=== PATIENT | male | born 1945 | race Caucasian/White ===

== ENCOUNTER 2016-11-06 10:35 | Outpatient (CLI) | payer MEDICARE, OTHER | END 2016-11-06 10:36 | disposition home or self-care (01) | DX: N40.1 Benign prostatic hyperplasia with lower urinary tract symptoms (principal); E11.9 Type 2 diabetes mellitus without complications; I10 Essential (primary) hypertension ==

== ENCOUNTER 2017-03-23 07:42 | Outpatient (CLI) | payer MEDICARE, OTHER ==
[2017-03-23 19:25] LABS: ALBUMIN/GLOBULIN RATIO 1.2 (1.0-2.2); BILIRUBIN,TOTAL 0.5 mg/dL (0.2-1.0); BUN - BLOOD UREA NITROGEN 20 mg/dL (6-20); CALCIUM 9.4 mg/dL (8.5-10.3); CARBON DIOXIDE - CO2 24 mmol/L (21-32); CHLORIDE 103 mmol/L (101-111); CHOL/HDL RATIO 2.4 (<5.0); CHOLESTEROL 106 mg/dL; GFR - MDRD 74 (>89); GLUCOSE 106 mg/dL (70-100); HDL CHOLESTEROL 45 mg/dL; LDL/HDL RATIO 0.9 (<3.6); POTASSIUM 4.3 mmol/L (3.5-5.0); SODIUM 136 mmol/L (135-145); TOTAL PROTEIN 7.3 g/dL (6.7-8.2); TRIGLYCERIDES 100 mg/dL; VLDL CHOLESTEROL 20 mg/dL
[2017-03-23 19:40] LABS: HEMOGLOBIN A1C 1.15 g/dL
== END 2017-03-23 07:43 | disposition home or self-care (01) ==
LOC: LAB.WCP 07:42
PROVIDERS: ATTEND Family Medicine
DX: I10 Essential (primary) hypertension (principal)
CPT/HCPCS: 36415; 80053; 80061; 82043; 83036

== ENCOUNTER 2017-06-25 08:00 | Outpatient (CLI) | payer MEDICARE, OTHER ==
[2017-06-25 14:20] LABS: ALBUMIN/GLOBULIN RATIO 1.3 (1.0-2.2); BILIRUBIN,TOTAL 0.5 mg/dL (0.2-1.0); CALCIUM 9.4 mg/dL (8.5-10.3); CREATININE 0.9 mg/dL (0.6-1.2); POTASSIUM 4.1 mmol/L (3.5-5.0); TOTAL PROTEIN 7.5 g/dL (6.7-8.2)
[2017-06-25 15:36] LABS: HEMOGLOBIN A1C 1.08 g/dL
== END 2017-06-25 08:01 | disposition home or self-care (01) ==
LOC: LAB.WCP 08:00
PROVIDERS: ATTEND Family Medicine
DX: E78.5 Hyperlipidemia, unspecified (principal); E11.49 Type 2 diabetes mellitus with other diabetic neurological complication; I10 Essential (primary) hypertension
CPT/HCPCS: 36415; 80053; 83036

== ENCOUNTER 2017-09-16 14:35 | Outpatient (CLI) | payer MEDICARE, OTHER ==
[2017-09-16 19:35] LABS: ALBUMIN/GLOBULIN RATIO 1.2 (1.0-2.2); BILIRUBIN,TOTAL 0.7 mg/dL (0.2-1.0); CALCIUM 9.8 mg/dL (8.5-10.3); CREATININE 0.9 mg/dL (0.6-1.2); HEMOGLOBIN A1C 1.13 g/dL; POTASSIUM 4.3 mmol/L (3.5-5.0); TOTAL PROTEIN 7.6 g/dL (6.7-8.2)
== END 2017-09-16 14:36 ==
LOC: LAB.WCP 14:35
PROVIDERS: ATTEND Family Medicine
DX: E11.49 Type 2 diabetes mellitus with other diabetic neurological complication (principal)
CPT/HCPCS: 36415; 80053; 83036

== ENCOUNTER 2017-12-11 07:10 | Day surgery (SDC) | payer MEDICARE, OTHER ==
[2017-12-11] MEDS ORDERED: LACTATED RINGERS 1,000 ML IV ONE (07:33)
[2017-12-11] MEDS ORDERED: GLUCAGON 1 MG/ML VIAL IM ONE (07:45)
[2017-12-11] MEDS ORDERED: MIDAZOLAM 2 MG/2 ML VIAL IVP ONE (07:45)
[2017-12-11] MEDS ORDERED: PROPOFOL 200 MG/20 ML VIAL IVP ONE (07:45)
[2017-12-11] MEDS ORDERED: SODIUM CHLORIDE 0.9% 10 ML VIAL IV ONE (07:45)
[2017-12-11] MEDS ORDERED: GLYCOPYRROLATE 1 MG/5 ML VIAL IVP ONE (07:45)
[2017-12-11] MEDS ORDERED: KETAMINE 500 MG/10 ML VIAL IVP ONE (07:45)
[2017-12-11 10:24] VITALS: BP 132/82
== END 2017-12-11 07:11 | disposition home or self-care (01) ==
LOC: SDS 07:10
PROVIDERS: ATTEND Surgery
PROC: 0DBN8ZX Excision of Sigmoid Colon, Via Natural or Artificial Opening Endoscopic, Diagnostic (ICD-10-PCS; 2017-12-11)
PROC: 0DBM8ZX Excision of Descending Colon, Via Natural or Artificial Opening Endoscopic, Diagnostic (ICD-10-PCS; 2017-12-11)
PROC: 0DBK8ZX Excision of Ascending Colon, Via Natural or Artificial Opening Endoscopic, Diagnostic (ICD-10-PCS; principal; 2017-12-11 08:15)
DX: Z12.11 Encounter for screening for malignant neoplasm of colon (principal); K57.30 Diverticulosis of large intestine without perforation or abscess without bleeding; D12.2 Benign neoplasm of ascending colon; D12.5 Benign neoplasm of sigmoid colon; K63.5 Polyp of colon; I10 Essential (primary) hypertension; E11.42 Type 2 diabetes mellitus with diabetic polyneuropathy; G47.33 Obstructive sleep apnea (adult) (pediatric); Z87.891 Personal history of nicotine dependence; Z79.82 Long term (current) use of aspirin; Z79.84 Long term (current) use of oral hypoglycemic drugs; Z79.4 Long term (current) use of insulin
CPT/HCPCS: 45384; J7120

== ENCOUNTER 2017-12-17 08:00 | Outpatient (CLI) | payer MEDICARE, OTHER ==
[2017-12-17 19:15] LABS: ALBUMIN/GLOBULIN RATIO 1.2 (1.0-2.2); ALKALINE PHOSPHATASE 71 IU/L (42-121); ALT ALANINE AMINOTRANSFERASE 22 IU/L (10-60); AST ASPARTATE AMINOTRANSFERASE 32 IU/L (10-42); BILIRUBIN,TOTAL 0.8 mg/dL (0.2-1.0); BUN - BLOOD UREA NITROGEN 24 mg/dL (6-20); CALCIUM 9.6 mg/dL (8.5-10.3); CARBON DIOXIDE - CO2 21 mmol/L (21-32); CHLORIDE 104 mmol/L (101-111); CREATININE 1.1 mg/dL (0.6-1.2); GFR - MDRD 66 (>89); GLUCOSE 188 mg/dL (70-100); SODIUM 136 mmol/L (135-145); TOTAL PROTEIN 7.4 g/dL (6.7-8.2)
[2017-12-17 19:25] LABS: HB2 TOTAL 15.6 g/dL; HEMOGLOBIN A1C 0.98 g/dL; HEMOGLOBIN A1C % 7.9 % (4.6-6.2)
== END 2017-12-17 08:01 | disposition home or self-care (01) ==
LOC: LAB.WCP 08:00
PROVIDERS: ATTEND Family Medicine
DX: E11.49 Type 2 diabetes mellitus with other diabetic neurological complication (principal); I10 Essential (primary) hypertension
CPT/HCPCS: 36415; 80053; 82043; 83036; 84443

== ENCOUNTER 2017-12-18 06:00 | Outpatient (CLI) | payer MEDICARE, OTHER | END 2017-12-18 06:01 | disposition home or self-care (01) | LOC: LAB.WCP 06:00 | PROVIDERS: ATTEND Family Medicine | DX: E11.49 Type 2 diabetes mellitus with other diabetic neurological complication (principal); I10 Essential (primary) hypertension | CPT/HCPCS: 82043 ==

== ENCOUNTER 2018-03-18 08:00 | Outpatient (CLI) | payer MEDICARE, OTHER ==
[2018-03-18 19:21] LABS: ALBUMIN 3.8 g/dL (3.2-5.5); ALBUMIN/GLOBULIN RATIO 1.1 (1.0-2.2); ALKALINE PHOSPHATASE 73 IU/L (42-121); ALT ALANINE AMINOTRANSFERASE 22 IU/L (10-60); AST ASPARTATE AMINOTRANSFERASE 25 IU/L (10-42); BUN - BLOOD UREA NITROGEN 20 mg/dL (6-20); CALCIUM 9.2 mg/dL (8.5-10.3); CARBON DIOXIDE - CO2 24 mmol/L (21-32); CHLORIDE 104 mmol/L (101-111); CHOL/HDL RATIO 2.7 (<5.0); CHOLESTEROL 134 mg/dL; CREATININE 0.9 mg/dL (0.6-1.2); GFR - MDRD 83 (>89); GLUCOSE 119 mg/dL (70-100); HDL CHOLESTEROL 49 mg/dL; LDL CHOLESTEROL,CALCULATED 69 mg/dL; LDL/HDL RATIO 1.4 (<3.6); SODIUM 135 mmol/L (135-145); TOTAL PROTEIN 7.3 g/dL (6.7-8.2); VLDL CHOLESTEROL 16 mg/dL
[2018-03-18 19:22] LABS: HB2 TOTAL 15.7 g/dL; HEMOGLOBIN A1C 1.06 g/dL; HEMOGLOBIN A1C % 8.3 % (4.6-6.2)
== END 2018-03-18 08:01 | disposition home or self-care (01) ==
LOC: LAB.WCP 08:00
PROVIDERS: ATTEND Family Medicine
DX: E78.5 Hyperlipidemia, unspecified (principal); E11.9 Type 2 diabetes mellitus without complications
CPT/HCPCS: 36415; 80053; 80061; 82043; 83036; 83721; 84443

== ENCOUNTER 2018-06-16 15:50 | Outpatient (CLI) | payer MEDICARE, OTHER ==
[2018-06-16 19:02] LABS: ALBUMIN/GLOBULIN RATIO 1.1 (1.0-2.2); BILIRUBIN,TOTAL 0.8 mg/dL (0.2-1.0); CALCIUM 9.3 mg/dL (8.5-10.3); TOTAL PROTEIN 7.6 g/dL (6.7-8.2)
[2018-06-16 19:06] LABS: HB2 TOTAL 15.2 g/dL; HEMOGLOBIN A1C 0.97 g/dL
== END 2018-06-16 15:51 | disposition home or self-care (01) ==
LOC: LAB.WCP 15:50
PROVIDERS: ATTEND Family Medicine
DX: E11.49 Type 2 diabetes mellitus with other diabetic neurological complication (principal)
CPT/HCPCS: 36415; 80053; 83036

== ENCOUNTER 2018-06-17 13:30 | Outpatient (CLI) | payer MEDICARE, OTHER | END 2018-06-17 13:31 | disposition home or self-care (01) | LOC: LAB.WCP 13:30 | PROVIDERS: ATTEND Family Medicine | DX: E11.49 Type 2 diabetes mellitus with other diabetic neurological complication (principal) | CPT/HCPCS: 82043 ==

== ENCOUNTER → 2018-09-07 | Outpatient (CLI) | payer MEDICARE, OTHER ==
[2018-09-07 14:51] LABS: ALBUMIN 3.9 g/dL (3.2-5.5); ALBUMIN/GLOBULIN RATIO 1.3 (1.0-2.2); BILIRUBIN,TOTAL 0.7 mg/dL (0.2-1.0); CALCIUM 9.5 mg/dL (8.5-10.3); TOTAL PROTEIN 6.9 g/dL (6.7-8.2)
[2018-09-07 18:38] LABS: BASOPHILS % (AUTO) 0.5 %; EOSINOPHILS # (AUTO) 0.1 10^3/uL (0.0-0.7); EOSINOPHILS % (AUTO) 2.3 %; LYMPHOCYTES # (AUTO) 1.6 10^3/uL (1.5-3.5); LYMPHOCYTES % (AUTO) 30.4 %; MEAN CORPUSCULAR HEMOGLOBIN 30.5 pg (27.0-31.0); MEAN CORPUSCULAR HGB CONC 32.9 g/dL (32.0-36.0); MEAN CORPUSCULAR VOLUME 92.7 fL (80.0-94.0); MEAN PLATELET VOLUME 11.6 fL (7.4-11.4); MONOCYTES # (AUTO) 0.4 10^3/uL (0.0-1.0); NEUTROPHILS # (AUTO) 3.1 10^3/uL (1.5-6.6); NEUTROPHILS % (AUTO) 59.8 %; PLT - PLATELET COUNT 146 10^3/uL (130-450); RED BLOOD COUNT 4.59 10^6/uL (4.70-6.10); RED CELL DISTRIBUTION WIDTH 13.2 % (12.0-15.0); WHITE BLOOD COUNT 5.2 x10^3/uL (4.8-10.8)
[2018-09-07 19:04] LABS: HB2 TOTAL 14.8 g/dL; HEMOGLOBIN A1C 1.13 g/dL; HEMOGLOBIN A1C % 9.1 % (4.6-6.2)
== END ==
LOC: LAB.WCP 10:47
PROVIDERS: ATTEND Family Medicine
DX: E11.49 Type 2 diabetes mellitus with other diabetic neurological complication (principal); I10 Essential (primary) hypertension; G47.30 Sleep apnea, unspecified
CPT/HCPCS: 36415; 80053; 83036; 85025

== ENCOUNTER 2019-01-27 12:02 | Outpatient (CLI) | payer MEDICARE, OTHER ==
[2019-01-27 19:20] LABS: BASOPHILS % (AUTO) 0.3 %; EOSINOPHILS # (AUTO) 0.2 10^3/uL (0.0-0.7); EOSINOPHILS % (AUTO) 3.2 %; HGB - HEMOGLOBIN 13.8 g/dL (14.0-18.0); LYMPHOCYTES # (AUTO) 1.9 10^3/uL (1.5-3.5); LYMPHOCYTES % (AUTO) 32.4 %; MEAN CORPUSCULAR HEMOGLOBIN 29.7 pg (27.0-31.0); MEAN CORPUSCULAR HGB CONC 32.7 g/dL (32.0-36.0); MEAN CORPUSCULAR VOLUME 90.8 fL (80.0-94.0); MEAN PLATELET VOLUME 10.5 fL (7.4-11.4); MONOCYTES # (AUTO) 0.3 10^3/uL (0.0-1.0); MONOCYTES % (AUTO) 5.2 %; NEUTROPHILS # (AUTO) 3.4 10^3/uL (1.5-6.6); NEUTROPHILS % (AUTO) 58.9 %; PLT - PLATELET COUNT 155 10^3/uL (130-450); RED BLOOD COUNT 4.63 10^6/uL (4.70-6.10); RED CELL DISTRIBUTION WIDTH 13.7 % (12.0-15.0); WHITE BLOOD COUNT 5.7 x10^3/uL (4.8-10.8)
[2019-01-27 21:05] LABS: ALBUMIN 3.9 g/dL (3.2-5.5); ALBUMIN/GLOBULIN RATIO 1.2 (1.0-2.2); ALKALINE PHOSPHATASE 82 IU/L (42-121); ALT ALANINE AMINOTRANSFERASE 21 IU/L (10-60); AST ASPARTATE AMINOTRANSFERASE 25 IU/L (10-42); BILIRUBIN,TOTAL 0.7 mg/dL (0.2-1.0); BUN - BLOOD UREA NITROGEN 19 mg/dL (6-20); CALCIUM 9.5 mg/dL (8.5-10.3); CARBON DIOXIDE - CO2 24 mmol/L (21-32); CHLORIDE 106 mmol/L (101-111); CHOL/HDL RATIO 2.7 (<5.0); CHOLESTEROL 138 mg/dL; CREATININE 0.8 mg/dL (0.6-1.2); GFR - MDRD 95 (>89); GLUCOSE 74 mg/dL (70-100); HDL CHOLESTEROL 51 mg/dL; LDL CHOLESTEROL,CALCULATED 70 mg/dL; LDL/HDL RATIO 1.4 (<3.6); SODIUM 139 mmol/L (135-145); TOTAL PROTEIN 7.1 g/dL (6.7-8.2); VLDL CHOLESTEROL 17 mg/dL
[2019-01-27 21:26] LABS: HB2 TOTAL 14.7 g/dL; HEMOGLOBIN A1C 1.09 g/dL; HEMOGLOBIN A1C % 8.9 % (4.6-6.2)
== END 2019-01-27 12:03 | disposition home or self-care (01) ==
LOC: LAB.WCP 12:02
PROVIDERS: ATTEND Family Medicine
DX: E11.9 Type 2 diabetes mellitus without complications (principal); I10 Essential (primary) hypertension; Z79.899 Other long term (current) drug therapy; E78.5 Hyperlipidemia, unspecified
CPT/HCPCS: 36415; 80053; 80061; 82043; 82570; 83036; 83721; 85025

== ENCOUNTER 2019-01-31 08:00 | Outpatient (CLI) | payer MEDICARE, OTHER ==
[2019-01-31 20:10] LABS: CREATININE,URINE 109.3 mg/dL; MICROALBUM/CREATININE RATIO,UR 26.5 ug/mg (<30.0); MICROALBUMIN,URINE 2.9 mg/dL (0-300.0)
== END 2019-01-31 23:59 | disposition home or self-care (01) ==
LOC: LAB.WCP 08:00
PROVIDERS: ATTEND Family Medicine
DX: E11.9 Type 2 diabetes mellitus without complications (principal)
CPT/HCPCS: 82043; 82570

== ENCOUNTER 2019-03-17 08:00 | Outpatient (CLI) | payer MEDICARE, OTHER ==
[2019-03-17 19:02] LABS: CALCIUM 9.3 mg/dL (8.5-10.3)
== END 2019-03-17 23:59 | disposition home or self-care (01) ==
LOC: LAB.WCP 08:00
PROVIDERS: ATTEND Family Medicine
DX: R06.00 Dyspnea, unspecified (principal)
CPT/HCPCS: 36415; 80048; 83880

== ENCOUNTER 2019-03-28 09:25 | Outpatient (CLI) | payer MEDICARE, OTHER ==
[~2019-03-28 09:25] MED LIST: ALBUTEROL NEB 2.5 MG/3 ML INH ONE
--- NOTE | 2019-03-28 14:20 | XRAY Report ---
Reason: NEUROGENIC CLAUDICATION,ARTHRITIS,LUMBAR SPINE Procedure Date: 03/28/2019 Accession Number: [id number] / [id number] Procedure: XR - Lumbar Spine 2 View CPT Code: FULL RESULT: EXAM: LUMBOSACRAL SPINE RADIOGRAPHY EXAM DATE: 03/28/2019 11:12 AM. CLINICAL HISTORY: NEUROGENIC CLAUDICATION, ARTHRITIS, LUMBAR SPINE. COMPARISONS: None. TECHNIQUE: 3 views. FINDINGS: Alignment: Normal. No spondylolisthesis or scoliosis. Bones: Five [id number] lumbar vertebral bodies are present. No fractures or bone lesions. Disks: Mild disk height narrowing at L1-L2 without subluxation. Otherwise no significant disk height narrowing. Facets: Advanced multilevel facet arthropathy. Sacroiliac Joints: Unremarkable. Soft Tissues: Normal. The visualized bowel gas pattern is normal. IMPRESSION: 1. No compression fracture or malalignment. 2. Moderately severe multilevel facet arthropathy. 3. Mild degenerative disease at L1-L2. No other significant degenerative disk disease. RADIA
== END 2019-03-28 09:26 | disposition home or self-care (01) ==
LOC: RT 09:25 → DI 09:26
PROVIDERS: ATTEND Family Medicine
DX: M51.36 Other intervertebral disc degeneration, lumbar region (principal); M47.816 Spondylosis without myelopathy or radiculopathy, lumbar region; R05 Cough; Z87.891 Personal history of nicotine dependence
CPT/HCPCS: 72100; 94060; 94729

== ENCOUNTER 2019-05-19 09:56 | Outpatient (CLI) | payer MEDICARE, OTHER ==
--- NOTE | 2019-05-20 16:11 | CT Report ---
Reason: DYSPNEA ON EXERTION, ABNORMAL PFT Procedure Date: 05/19/2019 Accession Number: [id number] / [id number] Procedure: CT - CHEST WO CPT Code: FULL RESULT: EXAM: CT CHEST EXAM DATE: 05/19/2019 10:10 AM. CLINICAL HISTORY: DYSPNEA ON EXERTION, ABNORMAL PFT. COMPARISONS: None. TECHNIQUE: Routine helical CT imaging was performed through the chest. IV contrast: None. Reconstructions: Coronal and sagittal. In accordance with CT protocol optimization, one or more of the following dose reduction techniques were utilized for this exam: automated exposure control, adjustment of mA and/or KV based on patient size, or use of iterative reconstructive technique. FINDINGS: Lungs/Pleura: Localized accentuation of lung markings with possible scarring and small area of bronchiectasis in the medial posterior right base. Otherwise clear. No consolidation, effusion, or pneumothorax. Mediastinum: Overall heart size upper limit of normal. Dilated main pulmonary artery measuring 3.6 cm, indicating pulmonary artery hypertension. Mild dilation of ascending thoracic aorta measuring 4.5 cm. No pericardial effusion. At least one vessel coronary artery calcification. No lymphadenopathy. Bones: Degenerative changes. Visualized Abdomen: Atrophic pancreas. Other: None. IMPRESSION: 1. Localized scarring and bronchiectasis in the medial right posterior base; atypical appearing acute infiltrate is also a consideration. 2. Pulmonary artery hypertension. Mild dilation of ascending thoracic aorta. 3. Coronary artery calcifications, atrophic pancreas, and other chronic or incidental findings. RADIA
== END 2019-05-19 09:57 | disposition home or self-care (01) ==
LOC: DI 09:56
PROVIDERS: ATTEND Family Medicine
DX: J47.9 Bronchiectasis, uncomplicated (principal); I27.0 Primary pulmonary hypertension; I77.810 Thoracic aortic ectasia
CPT/HCPCS: 71250

== ENCOUNTER 2019-06-15 08:00 | Outpatient (CLI) | payer MEDICARE, OTHER ==
[2019-06-15 19:16] LABS: ALBUMIN 3.6 g/dL (3.2-5.5); ALBUMIN/GLOBULIN RATIO 1.1 (1.0-2.2); BILIRUBIN,TOTAL 0.5 mg/dL (0.2-1.0); CALCIUM 9.6 mg/dL (8.5-10.3); HB2 TOTAL 14.2 g/dL; HEMOGLOBIN A1C 0.88 g/dL; HEMOGLOBIN A1C % 7.8 % (4.6-6.2)
== END 2019-06-15 23:59 | disposition home or self-care (01) ==
LOC: LAB.WCP 08:00
PROVIDERS: ATTEND Family Medicine
DX: R60.0 Localized edema (principal); E11.9 Type 2 diabetes mellitus without complications; I10 Essential (primary) hypertension
CPT/HCPCS: 36415; 80053; 82043; 83036

== ENCOUNTER 2019-07-13 08:58 | Outpatient (CLI) | payer MEDICARE, OTHER | END 2019-07-13 08:59 | disposition home or self-care (01) | LOC: DI 08:58 | PROVIDERS: ATTEND Family Medicine | DX: I10 Essential (primary) hypertension (principal); R06.09 Other forms of dyspnea; R05 Cough; G47.30 Sleep apnea, unspecified; I49.3 Ventricular premature depolarization; I07.1 Rheumatic tricuspid insufficiency | CPT/HCPCS: 93306 ==

== ENCOUNTER 2019-08-09 08:00 | Outpatient (CLI) | payer MEDICARE, OTHER ==
[2019-08-09 19:10] LABS: BASOPHILS % (AUTO) 0.5 %; EOSINOPHILS # (AUTO) 0.1 10^3/uL (0.0-0.7); EOSINOPHILS % (AUTO) 1.7 %; HGB - HEMOGLOBIN 13.8 g/dL (14.0-18.0); LYMPHOCYTES # (AUTO) 1.9 10^3/uL (1.5-3.5); MEAN CORPUSCULAR HEMOGLOBIN 29.4 pg (27.0-31.0); MEAN CORPUSCULAR VOLUME 91.9 fL (80.0-94.0); MEAN PLATELET VOLUME 12.9 fL (7.4-11.4); MONOCYTES # (AUTO) 0.4 10^3/uL (0.0-1.0); NEUTROPHILS # (AUTO) 3.5 10^3/uL (1.5-6.6); NEUTROPHILS % (AUTO) 59.3 %; PLT - PLATELET COUNT 175 10^3/uL (130-450); RED BLOOD COUNT 4.69 10^6/uL (4.70-6.10); RED CELL DISTRIBUTION WIDTH 13.2 % (12.0-15.0); WHITE BLOOD COUNT 5.9 x10^3/uL (4.8-10.8)
[2019-08-09 19:41] LABS: HB2 TOTAL 14.8 g/dL; HEMOGLOBIN A1C 0.92 g/dL; HEMOGLOBIN A1C % 7.8 % (4.6-6.2)
[2019-08-09 19:54] LABS: CHOL/HDL RATIO 2.4 (<5.0); CHOLESTEROL 124 mg/dL; HDL CHOLESTEROL 52 mg/dL; LDL CHOLESTEROL,CALCULATED 61 mg/dL; LDL/HDL RATIO 1.2 (<3.6); VLDL CHOLESTEROL 11 mg/dL
[2019-08-09 20:42] LABS: ALBUMIN 3.9 g/dL (3.2-5.5); ALBUMIN/GLOBULIN RATIO 1.1 (1.0-2.2); BILIRUBIN,TOTAL 0.7 mg/dL (0.2-1.0); CALCIUM 9.5 mg/dL (8.5-10.3); CREATININE 0.9 mg/dL (0.6-1.2); TOTAL PROTEIN 7.3 g/dL (6.7-8.2)
== END 2019-08-09 23:59 | disposition home or self-care (01) ==
LOC: LAB.WCP 08:00
PROVIDERS: ATTEND Internal Medicine Cardiovascular Disease
DX: I10 Essential (primary) hypertension (principal); E11.49 Type 2 diabetes mellitus with other diabetic neurological complication
CPT/HCPCS: 36415; 80048; 80053; 80061; 83036; 83721; 85025

== ENCOUNTER 2019-10-24 18:34 | Outpatient (CLI) | payer MEDICARE, OTHER | END 2019-10-24 18:35 | disposition EMS.NT | LOC: EMS 18:34 | PROVIDERS: ATTEND Surgery | DX: Z03.89 Encounter for observation for other suspected diseases and conditions ruled out (principal) ==

== ENCOUNTER 2019-10-27 01:31 | Outpatient (CLI) | payer MEDICARE, OTHER | END 2019-10-27 01:32 | disposition critical access hospital (66) | LOC: EMS 01:31 | PROVIDERS: ATTEND Surgery | DX: M79.89 Other specified soft tissue disorders (principal); M79.662 Pain in left lower leg | CPT/HCPCS: A0425; A0429 ==

== ENCOUNTER 2019-10-27 01:49 | Inpatient (IN) | payer MEDICARE, OTHER ==
[2019-10-27] MEDS ORDERED: SODIUM CHLORIDE 0.9% 1,000 ML IV ONE (02:17)
--- NOTE | 2019-10-27 02:21 | ED Physician Documentation ---
History of Present Illness - Stated complaint Stated Complaint: LEG SWELLING - Chief complaint Chief Complaint: General - History obtained from History obtained from: Patient, EMS - History of Present Illness Timing: How many days ago (4) - Additonal information Additional information: 73-year old diabetic male on insulin has become profoundly weak and has had falls in his home and has some erythema and swelling to the left lower extremity more than usual. The patient indicates that 5 days ago he was able to go to the store and retrieve his food and seem to be doing as well as he usually does. He always walks with a cane. Over the past 4 days he has become progressively weak he has had falls in his home he is bruised his ribs on the right side he has rug ramsey on his knees from crawling around in his house. He has developed a foul taste in his mouth and he is unable to urinate today. He states that he was urinating every 1/2 hour yesterday and today he is not able to urinate. He states that he is recently (Sep) been in to see Dr. Yuki Rick and had a coronary angiogram done and he has been in to see the county superintendent of schools and has been cleared for his lungs as well. He states he had these examinations done in preparation to have surgery for spinal stenosis. Review of Systems Constitutional: reports: Fatigue, Other (weakness). denies: Fever, Chills, Myalgias, Sweats Eyes: denies: Decreased vision Ears: denies: Ear pain Nose: denies: Rhinorrhea / runny nose, Congestion Throat: reports: Other (dry mucuos membranes and perverted taste). denies: Dental pain / toothache Cardiac: denies: Chest pain / pressure, Palpitations Respiratory: denies: Dyspnea, Cough GI: reports: Nausea. denies: Abdominal Pain, Vomiting, Constipation, Diarrhea : reports: Frequency, Unable to Void. denies: Dysuria Skin: reports: Rash, Other (rash to groin and increased redness to left lower e xt.) Musculoskeletal: reports: Neck pain, Extremity pain, Extremity swelling (mostly to the left lower.) PD PAST MEDICAL HISTORY - Past Medical History Cardiovascular: Hypertension Respiratory: Sleep apnea Endocrine/Autoimmune: Type 2 diabetes GI: Colon polyps : None HEENT: Chronic vision loss Psych: None Musculoskeletal: None Derm: None - Past Surgical History General: Colonoscopy Ortho: Arthroscopic surgery HEENT: Cataracts - Present Medications Home Medications: Ambulatory Orders Medication Instructions Recorded Confirmed Aspirin Chewable [[place] 81 mg PO DAILY 03/02/13 12/10/17 Aspirin] Insulin Aspart [NovoLOG] 20 - 60 unit SUBQ BID 03/02/13 12/10/17 Insulin Glargine,Hum.rec.anlog 100 unit SQ BID 03/02/13 12/11/17 [Lantus] Liraglutide [Victoza 2-Yg] 1.8 mg SQ DAILY 03/02/13 12/11/17 Magnesium 200 mg PO DAILY 03/02/13 12/10/17 Metformin HCl [Metformin HCl ER] 850 mg PO TID 03/02/13 12/10/17 Metoprolol Succinate [Toprol Xl] 25 mg PO DAILY 03/02/13 12/11/17 [place]-3 Fatty Acids [Fish Oil] 1,000 mg PO DAILY 03/02/13 12/11/17 Telmisartan [Micardis] 80 mg PO DAILY 03/02/13 12/11/17 Atorvastatin Calcium [Lipitor] 80 mg PO QPM 02/06/15 12/11/17 Cetirizine HCl [Zyrtec] 10 mg PO DAILY 02/06/15 12/11/17 Multivitamin [Multiple Vitamins] 1 each PO DAILY 12/10/17 12/11/17 diphenhydrAMINE [Benadryl] 25 mg PO HS 12/10/17 12/11/17 - Allergies Allergies/Adverse Reactions: Allergies Allergy/AdvReac Type Severity Reaction Status Date / Time hydrochlorothiazide AdvReac Severe pancreatiti Verified 10/27/19 02:06 s adhesive tape AdvReac Itching Verified 10/27/19 02:06 - Social History Smoking Status: Former smoker PD ED PE NORMAL - Vitals Vital signs reviewed: Yes (tachy and hypertensive diastolic ) - General General: Alert and oriented X 3, Well developed/nourished, Other (This is a 6 foot 6 inch 380 pound male who smells of the clinic team flesh and has marked lower extremity edema on the left with erythema extending up to the thigh who is in a pair of underwear with a leather belt around his waist and is having a hard time shifting from the [place] to our gurney. He appears weak but he is interactive and able to give adequate history with patients.) - HEENT HEENT: Atraumatic, PERRL, EOMI, Other (dry mucous membranes ) - Neck Neck: Supple, no meningeal sign, No bony TTP - Cardiac Cardiac: RRR, No murmur - Respiratory Respiratory: No respiratory distress, Other (bibasilar rhonchi) - Abdomen Abdomen: Soft, Non tender, Other (obese protruberant abdomen. There is bruising the the right upper abdomen over the lower ribs on the right. ) - Back Back: No CVA TTP - Derm Derm: Other (There is deep erythema to the intriginous folds inguinally bilaterally and there is light erythema consistent with superinfection to the left upper thigh. The left calf has circumfirential erythema and sewlling consistient with cellulitis with lymphangitic streaking to the thigh. There is post inflamitory hyperpigmentation to the right anterior calf with much less swelling than the right. ) - Extremities Extremities: No deformity, Other (edema to the left lower ext from the toes to the thigh with erythema and mild edema and post inflamitory hyperpigmenation to the right anterior calf. There are rug ramsey to both knees. There is good ROM of the knees without pain and to the ankles without pain. The left calf is tender. ) - Neuro Neuro: Alert and oriented X 3, red hat open stack administrator 2-12 intact, No motor deficit, Normal speech, Other (There is subjective numbness to the left LE. ) Eye Opening: Spontaneous Motor: Obeys Commands Verbal: Oriented GCS Score: 15 - Psych Psych: Normal mood, Normal affect Results - Vitals Vitals: Vital Signs - 24 hr 10/27/19 10/27/19 10/27/19 01:55 02:06 03:02 Temperature 36.9 C Heart Rate 108 H 98 Respiratory 19 17 19 Rate Blood Pressure 127/97 H 142/68 H 127/78 O2 Saturation 97 96 97 10/27/19 04:56 Temperature Heart Rate 95 Respiratory 18 Rate Blood Pressure 144/64 H O2 Saturation 97 Oxygen O2 Source Room air - Labs Labs: Laboratory Tests 10/27/19 10/27/19 10/27/19 02:25 02:25 02:25 WBC 12.7 H RBC 4.31 L Hgb 12.9 L Hct 38.1 L MCV 88.4 MCH 29.9 MCHC 33.9 RDW 13.1 Plt Count 156 MPV 12.0 H Neut # (Auto) 9.4 H Lymph # (Auto) 2.4 [place] # (Auto) 0.8 Eos # (Auto) 0.0 Baso # (Auto) 0.0 Absolute Nucleated RBC 0.00 Nucleated RBC % 0.0 VBG pH VBG pCO2 VBG pO2 VBG HCO3 VBG Total CO2 VBG O2 Saturation VBG Base Excess Sodium 134 L Potassium 3.7 Chloride 102 Carbon Dioxide 22 Anion Gap 10.0 BUN 34 H Creatinine 1.6 H Estimated GFR (MDRD) 43 L Glucose 63 L Lactic Acid 1.7 Calcium 8.8 Total Bilirubin 0.8 AST 305 H ALT 103 H Alkaline Phosphatase 59 Total Creatine Kinase Total Protein 7.2 Albumin 3.4 Globulin 3.8 Albumin/Globulin Ratio 0.9 L Lipase 45 Urine Color Urine Clarity Urine pH Ur Specific [place] Urine Protein Urine Glucose (UA) Urine Ketones Urine Occult Blood Urine Nitrite Urine Bilirubin Urine Urobilinogen Ur Leukocyte Esterase Urine RBC Urine WBC Ur Squamous Epith Cells Amorphous Sediment Urine Bacteria Urine Casts Ur Microscopic Review Urine Culture Comments Serum Ketones NEGATIVE 10/27/19 10/27/19 10/27/19 02:25 02:25 03:30 WBC RBC Hgb Hct MCV MCH MCHC RDW Plt Count MPV Neut # (Auto) Lymph # (Auto) [place] # (Auto) Eos # (Auto) Baso # (Auto) Absolute Nucleated RBC Nucleated RBC % VBG pH 7.515 H VBG pCO2 29.2 L VBG pO2 46.3 VBG HCO3 23.0 VBG Total CO2 23.9 L VBG O2 Saturation 87.8 H VBG Base Excess 1.1 Sodium Potassium Chloride Carbon Dioxide Anion Gap BUN Creatinine Estimated GFR (MDRD) Glucose Lactic Acid Calcium Total Bilirubin AST ALT Alkaline Phosphatase Total Creatine Kinase 8987 H* Total Protein Albumin Globulin Albumin/Globulin Ratio Lipase Urine Color YELLOW Urine Clarity CLEAR Urine pH 5.5 Ur Specific [place] 1.020 Urine Protein 100 H Urine Glucose (UA) NEGATIVE Urine Ketones NEGATIVE Urine Occult Blood LARGE H Urine Nitrite NEGATIVE Urine Bilirubin NEGATIVE Urine Urobilinogen 0.2 (NORMAL) Ur Leukocyte Esterase NEGATIVE Urine RBC 0-5 Urine WBC 0-3 Ur Squamous Epith Cells RARE Squamous Amorphous Sediment Moderate Urine Bacteria Rare Urine Casts 0-2 Hyaline Casts Ur Microscopic Review INDICATED Urine Culture Comments NOT INDICATED Serum Ketones - Rads (name of study) LE duplex Radiology: Prelim report reviewed (Impression: No evidence for deep venous thrombosis.), EMP read indepedently, See rad report chest Radiology: Prelim report reviewed (Impression: No acute cardiopulmonary process.), EMP read indepedently, See rad report Procedures - IVC sono (time) 0210 Bedside IVC sono: IVC measures (cm) (1.20), IVC collapsed c insp (cm) (complete), Dehydration (est 1-2 liter deficit.) PD MEDICAL DECISION MAKING - ED course Complexity details: reviewed old records, reviewed results, re-evaluated patient, considered differential, d/w patient ED course: 73-year-old male with history of diabetes and spinal stenosis has developed cellulitis to the left lower extremity and significant weakness. He is weak enough that he is unable to stand or take care of himself in his home. He has had multiple falls. He is cleaned up and placed into a hospital bed he is much more comfortable and he does have significant yeast in the inguinal area with some superinfection spreading to the left thigh as well. He is found to be dehydrated on interrogation the inferior vena cava. He is administered saline and he continues to have a low blood sugar and eventually is placed onto a maintenance with D5 lactated Ringer's at 150 mL's an hour. He has a significant infectious burden to the left lower extremity and he is administered IV rocephin and fluconezole. There is no evidence of DVT. The hospitalist is consulted and Dr. Perez graciously agrees to care for the patient in the hospital. Departure - Departure Disposition: 66 [facility] DC/Xfer Clinical Impression: Yeast dermatitis, Dehydration, Weakness Cellulitis Qualifiers: Site of cellulitis: extremity Site of cellulitis of extremity: lower extremity Laterality: left Qualified Code(s): L03.116 - Cellulitis of left lower limb Condition: Stable Discharge Date/Time: 10/27/19 05:41
[2019-10-27 02:38] LABS: VBG BASE EXCESS 1.1 mmol/L (-2 - +2); VBG PCO2 29.2 mmHg (41-51); VBG PH 7.515 (7.31-7.41); VBG PO2 46.3 mmHg (25-47); VBG TOTAL CO2 23.9 mmol/L (24-29)
[2019-10-27 02:43] LABS: BASOPHILS % (AUTO) 0.2 %; EOSINOPHILS % (AUTO) 0.1 %; HGB - HEMOGLOBIN 12.9 g/dL (14.0-18.0); LYMPHOCYTES # (AUTO) 2.4 10^3/uL (1.5-3.5); LYMPHOCYTES % (AUTO) 18.7 %; MEAN CORPUSCULAR HEMOGLOBIN 29.9 pg (27.0-31.0); MEAN CORPUSCULAR HGB CONC 33.9 g/dL (32.0-36.0); MEAN CORPUSCULAR VOLUME 88.4 fL (80.0-94.0); MONOCYTES # (AUTO) 0.8 10^3/uL (0.0-1.0); MONOCYTES % (AUTO) 6.2 %; NEUTROPHILS # (AUTO) 9.4 10^3/uL (1.5-6.6); PLT - PLATELET COUNT 156 10^3/uL (130-450); RED BLOOD COUNT 4.31 10^6/uL (4.70-6.10); RED CELL DISTRIBUTION WIDTH 13.1 % (12.0-15.0); WHITE BLOOD COUNT 12.7 x10^3/uL (4.8-10.8)
[2019-10-27 02:46] LABS: KETONES, SERUM (ACETEST) NEGATIVE (NEGATIVE)
[2019-10-27 02:51] LABS: ALBUMIN 3.4 g/dL (3.2-5.5); ALBUMIN/GLOBULIN RATIO 0.9 (1.0-2.2); ALKALINE PHOSPHATASE 59 IU/L (42-121); ALT ALANINE AMINOTRANSFERASE 103 IU/L (10-60); AST ASPARTATE AMINOTRANSFERASE 305 IU/L (10-42); BILIRUBIN,TOTAL 0.8 mg/dL (0.2-1.0); BUN - BLOOD UREA NITROGEN 34 mg/dL (6-20); CALCIUM 8.8 mg/dL (8.5-10.3); CARBON DIOXIDE - CO2 22 mmol/L (21-32); CHLORIDE 102 mmol/L (101-111); CREATININE 1.6 mg/dL (0.6-1.2); GFR - MDRD 43 (>89); GLUCOSE 63 mg/dL (70-100); LIPASE 45 U/L (22-51); SODIUM 134 mmol/L (135-145); TOTAL PROTEIN 7.2 g/dL (6.7-8.2)
--- NOTE | 2019-10-27 03:06 | XRAY Report ---
Reason: chest pain Procedure Date: 10/27/2019 Accession Number: [id number] / [id number] Procedure: XR - Chest 1 View X-Ray CPT Code: 28905 Final Report FULL RESULT: EXAM: CHEST RADIOGRAPHY EXAM DATE: 10/27/2019 02:42 AM. CLINICAL HISTORY: Chest pain. COMPARISON: CHEST W/O 05/19/2019 10:06 AM. TECHNIQUE: 1 view. FINDINGS: Lungs/Pleura: No focal opacities evident. No pleural effusion. No pneumothorax. Mediastinum: Within exam limitations, the cardiomediastinal contour is normal. Other: None. IMPRESSION: No acute cardiopulmonary process. RADIA
[2019-10-27 03:48] LABS: BILIRUBIN,URINE NEGATIVE (NEGATIVE); GLUCOSE, URINE (UA) NEGATIVE (NEGATIVE); KETONES,URINE (UA) NEGATIVE (NEGATIVE); LEUKOCYTE ESTERASE, URINE NEGATIVE (NEGATIVE); NITRITE,URINE NEGATIVE (NEGATIVE); OCCULT BLOOD,URINE LARGE (NEGATIVE); PH,URINE 5.5 PH (5.0-7.5); PROTEIN,URINE 100 mg/dL (NEGATIVE); UROBILINOGEN,URINE 0.2 (NORMAL) E.U./dL (NORMAL)
--- NOTE | 2019-10-27 03:56 | Ultrasound Report ---
Reason: swelling/redness Procedure Date: 10/27/2019 Accession Number: [id number] / [id number] Procedure: US - Duplex Ext Veins Left CPT Code: Final Report FULL RESULT: EXAM: LEFT LOWER EXTREMITY VENOUS ULTRASOUND EXAM DATE: 10/27/2019 03:32 AM. CLINICAL HISTORY: Swelling/redness. COMPARISON: None. TECHNIQUE: Real-time sonographic vascular imaging was performed by the production assembler through the lower extremity utilizing both color-flow and Doppler spectral analysis. Multiple rental sales representative static images were saved for review. FINDINGS: Common Femoral Vein (CFV): Normal. CFV-GSV Junction: Normal. Profunda Femoral Vein (PFV): Normal. Femoral Vein (FV) Prox: Normal. Femoral Vein (FV) Mid: Normal. Femoral Vein (FV) Dist: Normal. Popliteal Vein: Normal. Posterior Tibial Veins: Normal. Peroneal Veins: Normal. Other: None. IMPRESSION: No evidence for deep venous thrombosis. RADIA
[2019-10-27 03:59] LABS: CLARITY,URINE CLEAR (CLEAR)
[2019-10-27 04:00] LABS: AMORPHOUS SEDIMENT,UR Moderate /LPF; BACTERIA,URINE Rare /HPF (None Seen); CASTS, URINE 0-2 Hyaline Casts /LPF; RBC,URINE 0-5 /HPF (0-5); SQUAMOUS EPITHELIAL CELL,UR RARE Squamous (<= Few)
[2019-10-27] MEDS ORDERED: FLUCONAZOLE 200 MG/100 ML 100 ML IV ONE (04:35)
[2019-10-27] MEDS ORDERED: cefTRIAXone 2 GM in SODIUM CHLORIDE 0.9% MINIBAG 100 ML IV STA (04:36)
[2019-10-27] MEDS ORDERED: DEXTROSE 5%-LACTATED RINGERS 1,000 ML IV SCH (05:00)
[2019-10-27] MEDS ORDERED: ACETAMINOPHEN 325 MG TABLET PO PRN (05:16)
--- NOTE | 2019-10-27 05:36 | HISTORY & PHYSICAL EXAMINATION ---
Chief Complaint - Chief Complaint Chief Complaint: left lower extremity swelling and redness, generalized weakness History of Present Illness - Admitted From Admitted From:: [facility] - History Obtained From Records Reviewed: yes History obtained from: patient - History of Present Illness HPI Comment/Other: Patient is a 73 y/o morbidly obese male who presented to the ED with weakness, left lower extremity redness and swelling. The weakness has been going on for 3 days. Tonight he fell out of bed, bruising his right side in the process. He was unable to get up due to weakness and has a bruise on his left knee from crawling on the floor. His neighbor came to his aid and called EMS. In the ED he is noted to have significant redness in his left lower extremity, old scabs and a +1 edema. There is also less redness noted on the proximal aspect of the left inner thigh. He has significant yeast infection in the groin area. He denies chest pain but has muskuloskeletal pain in the region of his right ribs due to the fall. He has a cough which he says is occasionally productive of yellow sputum. He denies abdominal pain, n/v/d, fever or chills. He was found to have a WBC of 12.7 in the ED. He is being admitted for further treatment He has DM II and is on lantus bid and trulicity. He lives alone and is usually independent of activities of daily living. He gets around with a cane due to severe spinal stenosis for which he has seen Dr Santana with [facility]. History - Past Medical History Cardiovascular: reports: Hypertension, High cholesterol Respiratory: reports: Sleep apnea Endocrine/Autoimmune: reports: Type 2 diabetes GI: reports: Colon polyps : reports: None HEENT: reports: Chronic vision loss Psych: reports: None Musculoskeletal: reports: Other Derm: reports: None MRSA Hx?: No Other Past Medical History: Severe Spinal stenosis. Morbid Obesity - Past Surgical History General: reports: Colonoscopy Ortho: reports: Arthroscopic surgery (right knee in 1965 in [place]) HEENT: reports: Cataracts - Family & Social History Family History Comment/Other: Father: at 65 y/o. Had oat cell cancer. Mother: breast cancer, ?leukemia, Dementia, CVA. Children alive and well. Social History Notes: He denies tobacco or illicit drug use. He drinks alcohol occasionally. He lives alone. Is independent of activities of daily living. Children live in [facility]. Sister lives in [place]. He gets around with a walking cane. - POLST Patient has POLST: No POLST Status: Full Code Meds/Allgy - Home Medications Home Medications: Ambulatory Orders Medication Instructions Recorded Confirmed Aspirin Chewable [[place] 81 mg PO DAILY 03/02/13 12/10/17 Aspirin] Insulin Aspart [NovoLOG] 20 - 60 unit SUBQ BID 03/02/13 12/10/17 Insulin Glargine,Hum.rec.anlog 100 unit SQ BID 03/02/13 12/11/17 [Lantus] Liraglutide [Victoza 2-Yg] 1.8 mg SQ DAILY 03/02/13 12/11/17 Magnesium 200 mg PO DAILY 03/02/13 12/10/17 Metformin HCl [Metformin HCl ER] 850 mg PO TID 03/02/13 12/10/17 Metoprolol Succinate [Toprol Xl] 25 mg PO DAILY 03/02/13 12/11/17 [place]-3 Fatty Acids [Fish Oil] 1,000 mg PO DAILY 03/02/13 12/11/17 Telmisartan [Micardis] 80 mg PO DAILY 03/02/13 12/11/17 Atorvastatin Calcium [Lipitor] 80 mg PO QPM 02/06/15 12/11/17 Cetirizine HCl [Zyrtec] 10 mg PO DAILY 02/06/15 12/11/17 Multivitamin [Multiple Vitamins] 1 each PO DAILY 12/10/17 12/11/17 diphenhydrAMINE [Benadryl] 25 mg PO HS 12/10/17 12/11/17 - Allergies Allergies/Adverse Reactions: Allergies Allergy/AdvReac Type Severity Reaction Status Date / Time hydrochlorothiazide AdvReac Severe pancreatiti Verified 10/27/19 02:06 s adhesive tape AdvReac Itching Verified 10/27/19 02:06 Review of Systems - Constitutional Constitutional: reports: Fatigue, Weakness. denies: Fever - Eyes Eyes: denies: Pain, Blurred vision, Dipolpia - Ears, Nose & Throat Ears, Nose & Throat: denies: Vertigo, Sore throat - Cardiovascular Cariovascular: reports: Palpitations. denies: Chest pain, Lightheadedness, Syncope, Exertional dyspnea - Respiratory Respiratory: reports: Cough, Sputum production. denies: Wheezing, SOB at rest, SOB with exertion - Gastrointestinal Gastrointestinal: denies: Abdominal pain, Black stools, Nausea, Vomiting, Coffee grounds emesis, Other (obese abdomen) - Genitourinary Genitourinary: denies: Dysuria, Frequency, Urgency, Hematuria - Musculoskeletal Musculoskeletal: reports: Other (right lateral thorax/ribs) - Integumentary Integumentary: reports: Other (yeast/redness in groin area left lower extremity redness with scab) - Neurological Neurological: reports: General weakness. denies: Focal weakness, Headache, Dizziness - Psychiatric Psychiatric: denies: Depression, Anxiety - Endocrine Endocrine: denies: Polyuria, Polydypsia - Hematologic/Lymphatic Hematologic/Lymphatic: reports: Bruising (from crawling on knees). denies: Anemia Prior Level of Functionality: He lives alone. Is independent of activities of daily living. Children live in [facility]. Sister lives in [place]. He gets around with a walking cane. Exam - Vital Signs Vital Signs: Vital Signs x48h Temp Pulse Resp BP Pulse Ox 10/27/19 05:24 100 19 173/85 H 94 10/27/19 04:56 95 18 144/64 H 97 10/27/19 03:02 19 127/78 97 10/27/19 02:06 98 17 142/68 H 96 10/27/19 01:55 36.9 C 108 H 19 127/97 H 97 - Physical Exam General Appearance: positive: Alert, Moderate distress Eyes Bilateral: positive: Normal inspection, PERRL, EOMI ENT: positive: ENT inspection nml, No signs of dehydration Neck: positive: Nml inspection, No JVD, Trachea midline Respiratory: negative: Chest non-tender (tenderness to chest wall), Wheezes, Rales, Rhonchi Cardiovascular: positive: Regular rate & rhythm, No murmur Abdomen: positive: Non-tender, No organomegaly, Nml bowel sounds, Other (obese abdomen). negative: Guarding, Rebound Back: positive: Nml inspection Skin: positive: Skin rash (redness in the left lower extremity And redness in groin area) Extremities: positive: Pedal edema (+1) Neurologic/Psychiatric: positive: Oriented x3, CN's nml (2-12) Conclusion/Plan - Problem List (1) Cellulitis Conclusion/Plan: Blood cultures pending Patient started on rocephin and vancomycin Tylenol for any potential fever Duplex was negative for DVT Qualifiers: Site of cellulitis: extremity Site of cellulitis of extremity: lower extremity Laterality: left Qualified Code(s): L03.116 - Cellulitis of left lower limb (2) Genital candidiasis in male Conclusion/Plan: Nystatin powder to area bid (3) Rhabdomyolysis Conclusion/Plan: Likely related to falling an unable to wake up IV hydration with normal saline Will hold atorvastatin for now. Qualifiers: Encounter type: initial encounter (4) Arrhythmia Conclusion/Plan: EKG, Trop, BNP, Mg, Phos pending Will obtain a 2D echocardiogram (5) Diabetes mellitus Conclusion/Plan: On lantus 80units qam and 90units qpm Patient was hypoglycemic on admission Accu checks qid Qualifiers: Diabetes mellitus type: type 2 (6) Spinal stenosis Conclusion/Plan: At L1-L2. Patient follows with Dr Santana at [facility] Weight loss will be beneficial his his overall symptoms of back pain Qualifiers: Spinal region: lumbar (8) Hypertension Conclusion/Plan: Resume metoprolol once verified (9) Hyperlipemia Conclusion/Plan: Will hold atorvastatin for now in light of elevated liver enzymes and rhabdo - Lab Results Fish Bones: 10/27/19 02:25 10/27/19 02:25 Core Measures - Anticipated LOS I expect patient to be DC'd or transferred within 96 hours.: Yes - DVT/VTE - Prophylaxis VTE/DVT Device ordered at admit?: No Not Ordered - Medical Reason: Contraindicated (cellulitis in lower extremity) VTE/DVT Prophylaxis med ordered at admit?: Yes
[2019-10-27] MEDS ORDERED: SODIUM CHLORIDE 0.9% 1,000 ML IV SCH ×2 (06:00→07:28)
[2019-10-27] MEDS ORDERED: VANCOMYCIN INJ 2 GM in SODIUM CHLORIDE 0.9% 500 ML IV SCH (06:00)
[2019-10-27] MEDS ORDERED: VANCOMYCIN PER PHARMACY 100 GM in SODIUM CHLORIDE 0.9% 250 ML IV SCH (06:00)
[2019-10-27] MEDS: NYSTATIN POWDER 15 GM TOP SCH ×3 (06:20→20:46)
[2019-10-27] MEDS: SODIUM CHLORIDE FLUSH 0.9% 10 ML SYRINGE IVP PRN (06:42)
[2019-10-27] MEDS: oxyCODONE 5 MG TABLET PO PRN (06:43)
[2019-10-27] MEDS: PANTOPRAZOLE 40 MG TABLET PO SCH (06:43)
[2019-10-27 07:07] LABS: MAGNESIUM 1.9 mg/dL (1.7-2.8); PHOSPHORUS 2.6 mg/dL (2.5-4.6)
[2019-10-27 07:59] LABS: HEMOGLOBIN A1C 0.92 g/dL; HEMOGLOBIN A1C % 8.6 % (4.6-6.2)
[2019-10-27] MEDS: SODIUM CHLORIDE 0.9% 1,000 ML IV SCH ×2 (08:44→17:00)
[2019-10-27] MEDS: VANCOMYCIN INJ 2 GM in SODIUM CHLORIDE 0.9% 500 ML IV SCH ×2 (08:44→19:45)
[2019-10-27] MEDS ORDERED: IBUPROFEN 400 MG TABLET PO PRN (09:11)
[2019-10-27] MEDS: HEPARIN 5,000 UNIT/ML VIAL SUBQ SCH ×2 (09:12→20:44)
[2019-10-27] MEDS: SODIUM CHLORIDE FLUSH 0.9% 10 ML SYRINGE IVP SCH ×2 (09:13→17:03)
[2019-10-27] MEDS ORDERED: METOPROLOL SUCCINATE 25 MG TABLET PO SCH (09:15)
[2019-10-27] MEDS: LOSARTAN 50 MG TABLET PO SCH (09:52)
[2019-10-27] MEDS ORDERED: PIPERACILLIN/TAZOBACTAM 3.375 GM in SODIUM CHLORIDE 0.9% MINIBAG 100 ML IV ONE (10:00)
[2019-10-27] MEDS: INSULIN ASPART 300 UNIT/3 ML PEN SUBQ SCH ×3 (11:43→20:46)
--- NOTE | 2019-10-27 12:55 | PHARMACY PROGRESS NOTE ---
- Therapy Status Vancomycin regimen day #: 1 (2 g IV q12h was initiated (consistent per protocol); CrCl per [facility] calculation (using crockcroft & gault adjBW = ~72 ml/min)) Therapy status: Awaiting steady state Basis for treatment: Empirical Treatment indication: cellulitis Trough goal: 15-20 (generally SSTI trough goal 10-15 depending if uncomplicated) Concurrent antibiotics: zosyn - GIOVANNI Risk Risk level for Acute Kidney Injury: High Acute Kidney Injury risk factors: Piperacillin/Tozobactam, Wt >100kg or BMI >40, Baseline BUN:SCr >20:1, Goal trough >15 - Monitoring and Recommendation Clinical response to treatment: I&O Previous 24 hours 10/25/19 10/26/19 10/27/19 23:59 23:59 23:59 Intake Total 2643.667 Output Total 850 Balance 1793.667 Lab Results 10/27/19 02:25 BUN 34 H Creatinine 1.6 H Estimated GFR (MDRD) 43 L Monitoring plan: Daily serum creatinine, Draw trough early (this will be a random level-drawing to spot check for clearance given renal status; steady state trough generally reached ~5th dose) Next trough due prior to maintenance dose #: 3 Next trough due (date/time): 10/28 at 0730 Areas for additional monitoring: IV to PO when appropriate, Therapy de- escalation based on culture results, Acute Kidney Injury Pharmacy recommendation: Continue current regime
[2019-10-27] MEDS ORDERED: WITCH HAZEL/GLYCERIN 1 PAD TOP PRN (13:55)
[2019-10-27] MEDS: PIPERACILLIN/TAZOBACTAM 3.375 GM in SODIUM CHLORIDE 0.9% MINIBAG 100 ML IV SCH ×2 (14:06→22:26)
[2019-10-27] MEDS ORDERED: A & D OINTMENT 5 GM PACKET TOP PRN (15:06)
[2019-10-27] MEDS ORDERED: PETROLATUM WHITE 5 GM PACKET TOP PRN (15:22)
[2019-10-28] MEDS: oxyCODONE 5 MG TABLET PO PRN ×3 (00:14→23:36)
[2019-10-28] MEDS: SODIUM CHLORIDE FLUSH 0.9% 10 ML SYRINGE IVP SCH ×3 (00:14→17:20)
[2019-10-28] MEDS: SODIUM CHLORIDE 0.9% 1,000 ML IV SCH ×3 (03:58→14:37)
[2019-10-28 04:59] LABS: BASOPHILS % (AUTO) 0.3 %; EOSINOPHILS # (AUTO) 0.1 10^3/uL (0.0-0.7); HGB - HEMOGLOBIN 11.5 g/dL (14.0-18.0); LYMPHOCYTES # (AUTO) 1.3 10^3/uL (1.5-3.5); LYMPHOCYTES % (AUTO) 13.3 %; MEAN CORPUSCULAR HGB CONC 32.8 g/dL (32.0-36.0); MEAN CORPUSCULAR VOLUME 91.6 fL (80.0-94.0); MEAN PLATELET VOLUME 12.2 fL (7.4-11.4); MONOCYTES # (AUTO) 0.6 10^3/uL (0.0-1.0); MONOCYTES % (AUTO) 6.6 %; NEUTROPHILS # (AUTO) 7.6 10^3/uL (1.5-6.6); NEUTROPHILS % (AUTO) 78.2 %; PLT - PLATELET COUNT 139 10^3/uL (130-450); RED BLOOD COUNT 3.83 10^6/uL (4.70-6.10); RED CELL DISTRIBUTION WIDTH 13.5 % (12.0-15.0); WHITE BLOOD COUNT 9.7 x10^3/uL (4.8-10.8)
[2019-10-28 05:12] LABS: ALBUMIN 2.8 g/dL (3.2-5.5); ALBUMIN/GLOBULIN RATIO 0.8 (1.0-2.2); BILIRUBIN,TOTAL 0.9 mg/dL (0.2-1.0); CALCIUM 8.4 mg/dL (8.5-10.3); CREATININE 1.2 mg/dL (0.6-1.2); TOTAL PROTEIN 6.3 g/dL (6.7-8.2)
[2019-10-28] MEDS ORDERED: cefTRIAXone 2 GM in SODIUM CHLORIDE 0.9% MINIBAG 100 ML IV SCH ×2 (06:00)
[2019-10-28] MEDS ORDERED: cefTRIAXone 1 GM in SODIUM CHLORIDE 0.9% MINIBAG 100 ML IV SCH (06:00)
[2019-10-28] MEDS: PANTOPRAZOLE 40 MG TABLET PO SCH (06:14)
[2019-10-28] MEDS: PIPERACILLIN/TAZOBACTAM 3.375 GM in SODIUM CHLORIDE 0.9% MINIBAG 100 ML IV SCH ×3 (06:14→21:35)
[2019-10-28] MEDS: guaiFENesin/CODEINE 5 ML UDC PO PRN ×2 (06:14→20:40)
[2019-10-28 07:48] LABS: VANCOMYCIN,TROUGH 15.3 ug/mL (10.0-20.0)
[2019-10-28] MEDS: INSULIN ASPART 300 UNIT/3 ML PEN SUBQ SCH ×4 (08:36→21:02)
[2019-10-28] MEDS: VANCOMYCIN INJ 2 GM in SODIUM CHLORIDE 0.9% 500 ML IV SCH ×2 (08:37→20:32)
[2019-10-28] MEDS: METOPROLOL SUCCINATE 25 MG TABLET PO SCH ×2 (08:38→20:32)
[2019-10-28] MEDS: LOSARTAN 50 MG TABLET PO SCH (08:38)
[2019-10-28] MEDS: MAGNESIUM OXIDE 400 MG TABLET PO SCH (08:38)
[2019-10-28] MEDS: HEPARIN 5,000 UNIT/ML VIAL SUBQ SCH ×2 (08:40→20:33)
[2019-10-28] MEDS: NYSTATIN POWDER 15 GM TOP SCH ×2 (08:46→20:32)
[2019-10-28] MEDS ORDERED: SPIRONOLACTONE 25 MG TABLET PO SCH (09:00)
--- NOTE | 2019-10-28 11:08 | PROVIDER PROGRESS NOTE ---
Assessment/Plan - Problem List (1) Cellulitis Qualifiers: Site of cellulitis: extremity Site of cellulitis of extremity: lower extremity Laterality: left Qualified Code(s): L03.116 - Cellulitis of left lower limb Assessment/Plan: 10/28, improved. erythema and swelling are reduced. pt's WBC is down to 9.7 from 13. p t has no more fever. blood culture is negative for bacteremia. DVT is negative in his lower extremity. pt likely had chronic venous stenosis. pt denies pain on his lower extremity. plan: continue Zosyn and Vancomycin rise his lower extremity diabetes education, special diabetes foot care (2) Rhabdomyolysis Conclusion/Plan: 10/28 improved. CK is down to 3600 from 9000 plan: continue IVF of NS, continue lab monitor, kidney function monitor (3) Arrhythmia Conclusion/Plan: 10/28 pt had twice EKG on yesterday which reveals unchanged and without VT, was difference from tele monitor on last night. pt denies chest pain, palpitation, or cardiac distress or hypotension. repeated troponin is slight elevated and but stable. EKG reveals 50-55% EF with moderate pulmonary HTN with RVSP 69 mmGH. pt report he did not have good slight. plan: increase metoprolol 25 mg bid continue tele and vital monitor (4) Genital candidiasis in male Nystatin powder to area bid (5) Diabetes mellitus Conclusion/Plan: On lantus 80units qam and 90units qpm Patient was hypoglycemic on admission Accu checks qid (6) Spinal stenosis Conclusion/Plan: pain control. encourage pt loss of weight. (7) Hypertension Conclusion/Plan: stable, continue metoprolol Bid (8) Hyperlipemia Conclusion/Plan: Will hold atorvastatin for now in light of elevated liver enzymes and rhabdo (9)elevated liver enzyme / improved, enzyme of liver is reduced. unknown etiology hold hepatic toxical agent, continue lab monitor (10) weakness and multiple fall 1 order both PT/OT, and pt is high risk of fall, nurse for fall precaution. add oncology social worker consult for safe d/c plan - Current Meds Current Meds: Current Medications Generic Name Dose Route Start Last Admin Trade Name Freq PRN Reason Stop Dose Admin Guaifenesin/Codeine Phosphate 5 ml 10/27/19 05:27 10/28/19 06:14 Robitussin Ac PO 5 ml Q6HR PRN Administration Cough Heparin Sodium (Porcine) 5,000 unit 10/27/19 09:00 10/28/19 08:40 SUBQ 5,000 unit BID MARI Administration Vancomycin HCl 2 gm/ Sodium 500 mls @ 250 mls/hr 10/27/19 08:00 10/28/19 0 8:37 Chloride IV 250 mls/hr Q12H MARI Administration Sodium Chloride 1,000 mls @ 125 mls/hr 10/27/19 08:38 10/28/19 03:58 Normal Saline 0.9% IV 125 mls/hr .Q8H MARI Administration Piperacillin Sod/Tazobactam 100 mls @ 25 mls/hr 10/27/19 13:30 10/28/19 10:53 Sod 3.375 gm/ Sodium Chloride IV Infused Q8H MARI Infusion Insulin Aspart 2 - 10 unit 10/27/19 12:00 10/28/19 08:36 Novolog SUBQ Not Given 0800,1200,1700,2100 [facility] Protocol Losartan Potassium 100 mg 10/27/19 10:00 10/28/19 08:38 Cozaar PO 100 mg DAILY MARI Administration Magnesium Oxide 400 mg 10/28/19 08:00 10/28/19 08:38 Mag Ox PO 400 mg DAILYWM MARI Administration Metoprolol Succinate 25 mg 10/28/19 09:00 10/28/19 08:38 Toprol Xl PO 25 mg BID MARI Administration Nystatin 1 applic 10/27/19 05:23 10/28/19 08:46 Nystop TOP 1 applic BID MARI Administration Oxycodone HCl 5 mg 10/27/19 05:16 10/28/19 06:16 Roxicodone PO 5 mg Q4HR PRN Administration Pain 5 to 7 Pantoprazole Sodium 40 mg 10/27/19 07:00 10/28/19 06:14 Protonix PO 40 mg QDAC MARI Administration Sodium Chloride 10 ml 10/27/19 05:16 10/27/19 06:42 Normal Saline Flush 0.9% IVP 10 ml PRN PRN Administration NEEDED PER PROVIDER ORDERS Sodium Chloride 10 ml 10/27/19 09:00 10/28/19 09:53 Normal Saline Flush 0.9% IVP 10 ml 0100,0900,1700 MARI Administration Spironolactone 25 mg 10/28/19 09:00 10/28/19 09:52 Aldactone PO 25 mg DAILY MARI Administration - Lab Result Fish Bone Diagrams: 10/28/19 04:30 10/28/19 04:30 - Additional Planning My Orders: My Active Orders 10/27/19 12:00 Insulin Aspart [NovoLOG] 2 - 10 unit SUBQ 0800,1200,1700,2100 10/27/19 13:30 Piperacillin/Tazobactam [Zosyn] 3.375 gm Sodium Chloride 0.9% Minibag [Normal Saline 0.9% Minibag] 100 ml IV Q8H 10/28/19 Evaluate and Treat OT [OT] Routine 10/28/19 08:00 Magnesium Oxide [Mag Ox] 400 mg PO DAILYWM 10/28/19 09:00 Spironolactone [Aldactone] 25 mg PO DAILY 10/29/19 05:00 CK- CREATINE KINASE [CHEM] DAILYLAB 10/30/19 05:00 CK- CREATINE KINASE [CHEM] DAILYLAB 10/31/19 05:00 CK- CREATINE KINASE [CHEM] DAILYLAB 11/01/19 05:00 CK- CREATINE KINASE [CHEM] DAILYLAB 11/02/19 05:00 CK- CREATINE KINASE [CHEM] DAILYLAB Subjective - Subjective Patient Reports: Feeling Better (pt report he feel significant better) Objective Vital Signs: Vital Signs - 24 hr 10/27/19 10/27/19 10/27/19 12:15 14:35 15:56 Temperature 36.2 C L 37.1 C Heart Rate [ 83 Activity] Heart Rate [ 87 77 Radial] Heart Rate [ 81 Sitting] Heart Rate [ 80 Supine] Respiratory 18 Rate Blood Pressure 114/72 [Activity] Blood Pressure 103/60 134/75 H [Right Brachial artery] Blood Pressure 136/78 H [Sitting] Blood Pressure 108/54 L [Supine] O2 Saturation 97 97 10/27/19 10/28/19 10/28/19 20:38 00:01 05:00 Temperature 37.1 C 36.9 C 37.3 C Heart Rate [ Activity] Heart Rate [ 78 78 98 Radial] Heart Rate [ Sitting] Heart Rate [ Supine] Respiratory 20 20 20 Rate Blood Pressure [Activity] Blood Pressure 124/53 L 141/74 H 144/70 H [Right Brachial artery] Blood Pressure [Sitting] Blood Pressure [Supine] O2 Saturation 100 97 96 10/28/19 09:00 Temperature 37.5 C Heart Rate [ Activity] Heart Rate [ 106 H Radial] Heart Rate [ Sitting] Heart Rate [ Supine] Respiratory 18 Rate Blood Pressure [Activity] Blood Pressure 114/90 H [Right Brachial artery] Blood Pressure [Sitting] Blood Pressure [Supine] O2 Saturation 93 Oxygen O2 Source Nasal cannula I&O (Last 24 Hrs): Intake and Output Totals x24h 10/26/19 10/27/19 10/28/19 23:59 23:59 23:59 Intake Total 5278.584 1837.083 Output Total 2950 2375 Balance 2328.584 -537.917 General: Alert, Oriented x3, No acute distress HEENT: Atraumatic Neck: Supple Lymphatic: no adenopathy Neuro: Alert, Non Focal, Oriented Times 3 Cardiovascular: Normal S1, Normal S2 Respiratory: Chest non-tender, No respiratory distress, Breath sounds nml Abdomen: Normal bowel sounds, Soft - Results Results: Laboratory Results WBC 9.7 x10^3/uL (4.8-10.8) 10/28/19 04:30 RBC 3.83 10^6/uL (4.70-6.10) L 10/28/19 04:30 Hgb 11.5 g/dL (14.0-18.0) L 10/28/19 04:30 Hct 35.1 % (42.0-52.0) L 10/28/19 04:30 MCV 91.6 fL (80.0-94.0) 10/28/19 04:30 MCH 30.0 pg (27.0-31.0) 10/28/19 04:30 MCHC 32.8 g/dL (32.0-36.0) 10/28/19 04:30 RDW 13.5 % (12.0-15.0) 10/28/19 04:30 Plt Count 139 10^3/uL (130-450) 10/28/19 04:30 MPV 12.2 fL (7.4-11.4) H 10/28/19 04:30 Neut # (Auto) 7.6 10^3/uL (1.5-6.6) H 10/28/19 04:30 Lymph # (Auto) 1.3 10^3/uL (1.5-3.5) L 10/28/19 04:30 Br[place]ley # (Auto) 0.6 10^3/uL (0.0-1.0) 10/28/19 04:30 Eos # (Auto) 0.1 10^3/uL (0.0-0.7) 10/28/19 04:30 Baso # (Auto) 0.0 10^3/uL (0.0-0.1) 10/28/19 04:30 Absolute Nucleated RBC 0.00 x10^3/uL 10/28/19 04:30 Nucleated RBC % 0.0 /100WBC 10/28/19 04:30 D-Dimer 595.6 ng/mL (200.0-255.0) H 10/27/19 09:49 VBG pH 7.515 (7.31-7.41) H 10/27/19 02:25 VBG pCO2 29.2 mmHg (41-51) L 10/27/19 02:25 VBG pO2 46.3 mmHg (25-47) 10/27/19 02:25 VBG HCO3 23.0 mmol/L (23-28) 10/27/19 02:25 VBG Total CO2 23.9 mmol/L (24-29) L 10/27/19 02:25 VBG O2 Saturation 87.8 % (60-80) H 10/27/19 02:25 VBG Base Excess 1.1 mmol/L (-2 - +2) 10/27/19 02:25 Sodium 135 mmol/L (135-145) 10/28/19 04:30 Potassium 4.1 mmol/L (3.5-5.0) 10/28/19 04:30 Chloride 104 mmol/L (101-111) 10/28/19 04:30 Carbon Dioxide 23 mmol/L (21-32) 10/28/19 04:30 Anion Gap 8.0 (6-13) 10/28/19 04:30 BUN 25 mg/dL (6-20) H 10/28/19 04:30 Creatinine 1.2 mg/dL (0.6-1.2) 10/28/19 04:30 Estimated GFR (MDRD) 60 (>89) L 10/28/19 04:30 Glucose 135 mg/dL (70-100) H 10/28/19 04:30 Glycated Hemoglobin 8.6 % (4.6-6.2) H 10/27/19 02:25 Estim Average Glucose 200 (70-100) H 10/27/19 02:25 Lactic Acid 1.7 mmol/L (0.5-2.2) 10/27/19 02:25 Calcium 8.4 mg/dL (8.5-10.3) L 10/28/19 04:30 Phosphorus 2.6 mg/dL (2.5-4.6) 10/27/19 06:45 Magnesium 1.9 mg/dL (1.7-2.8) 10/27/19 06:45 Total Bilirubin 0.9 mg/dL (0.2-1.0) 10/28/19 04:30 AST 202 IU/L (10-42) H 10/28/19 04:30 ALT 87 IU/L (10-60) H 10/28/19 04:30 Alkaline Phosphatase 54 IU/L (42-121) 10/28/19 04:30 Total Creatine Kinase 3626 IU/L (22-269) H* 10/28/19 04:30 Troponin I High Sens 65.6 ng/L (2.3-19.7) H* 10/27/19 09:49 B-Natriuretic Peptide 219 pg/mL (5-100) H 10/27/19 06:45 Total Protein 6.3 g/dL (6.7-8.2) L 10/28/19 04:30 Albumin 2.8 g/dL (3.2-5.5) L 10/28/19 04:30 Globulin 3.5 g/dL (2.1-4.2) 10/28/19 04:30 Albumin/Globulin Ratio 0.8 (1.0-2.2) L 10/28/19 04:30 Lipase 45 U/L (22-51) 10/27/19 02:25 Urine Color YELLOW 10/27/19 03:30 Urine Clarity CLEAR (CLEAR) 10/27/19 03:30 Urine pH 5.5 PH (5.0-7.5) 10/27/19 03:30 Ur Specific [place] 1.020 (1.002-1.030) 10/27/19 03:30 Urine Protein 100 mg/dL (NEGATIVE) H 10/27/19 03:30 Urine Glucose (UA) NEGATIVE mg/dL (NEGATIVE) 10/27/19 03:30 Urine Ketones NEGATIVE mg/dL (NEGATIVE) 10/27/19 03:30 Urine Occult Blood LARGE (NEGATIVE) H 10/27/19 03:30 Urine Nitrite NEGATIVE (NEGATIVE) 10/27/19 03:30 Urine Bilirubin NEGATIVE (NEGATIVE) 10/27/19 03:30 Urine Urobilinogen 0.2 (NORMAL) E.U./dL (NORMAL) 10/27/19 03:30 Ur Leukocyte Esterase NEGATIVE (NEGATIVE) 10/27/19 03:30 Urine RBC 0-5 /HPF (0-5) 10/27/19 03:30 Urine WBC 0-3 /HPF (0-3) 10/27/19 03:30 Ur Squamous Epith Cells RARE Squamous (<= Few) 10/27/19 03:30 Amorphous Sediment Moderate /LPF 10/27/19 03:30 Urine Bacteria Rare /HPF (None Seen) 10/27/19 03:30 Urine Casts 0-2 Hyaline Casts /LPF 10/27/19 03:30 Ur Microscopic Review INDICATED 10/27/19 03:30 Urine Culture Comments NOT INDICATED 10/27/19 03:30 Last Dose Date 10/27/2019 10/28/19 07:30 Last Dose Time 214410/28/19 07:30 Vancomycin Trough 15.3 ug/mL (10.0-20.0) 10/28/19 07:30 Serum Ketones NEGATIVE (NEGATIVE) 10/27/19 02:25 - Procedures Procedures: Procedures CARPAL TUNNEL RELEASE (04/02/15) EXCISION OF ASCENDING COLON, ENDO, DIAGN (12/11/17) EXCISION OF DESCENDING COLON, ENDO, DIAGN (12/11/17) EXCISION OF SIGMOID COLON, ENDO, DIAGN (12/11/17) ABX Reporting Has patient been on IV antibiotics over the past 48 hours?: Yes Current Medications - Current Medications Current Medications: Active Medications Guaifenesin/Codeine Phosphate (Robitussin Ac) 5 ml PO Q6HR PRN PRN Reason: Cough Last Admin: 10/28/19 06:14 Dose: 5 ml Heparin Sodium (Porcine) () 5,000 unit SUBQ BID MARI Last Admin: 10/28/19 08:40 Dose: 5,000 unit Vancomycin HCl 2 gm/ Sodium (Chloride) 500 mls @ 250 mls/hr IV Q12H [facility] Last Infusion: 10/28/19 11:25 Dose: Infused Sodium Chloride (Normal Saline 0.9%) 1,000 mls @ 125 mls/hr IV .Q8H [facility] Last Admin: 10/28/19 03:58 Dose: 125 mls/hr Piperacillin Sod/Tazobactam (Sod 3.375 gm/ Sodium Chloride) 100 mls @ 25 mls/hr IV Q8H [facility] Last Infusion: 10/28/19 10:53 Dose: Infused Insulin Aspart (Novolog) 2 - 10 unit SUBQ 0800,1200,1700,2100 [facility]; Protocol Last Admin: 10/28/19 08:36 Dose: Not Given Losartan Potassium (Cozaar) 100 mg PO DAILY [facility] Last Admin: 10/28/19 08:38 Dose: 100 mg Magnesium Oxide (Mag Ox) 400 mg PO DAILYWM [facility] Last Admin: 10/28/19 08:38 Dose: 400 mg Metoprolol Succinate (Toprol Xl) 25 mg PO BID [facility] Last Admin: 10/28/19 08:38 Dose: 25 mg Nystatin (Nystop) 1 applic TOP BID [facility] Last Admin: 10/28/19 08:46 Dose: 1 applic Oxycodone HCl (Roxicodone) 5 mg PO Q4HR PRN PRN Reason: Pain 5 to 7 Last Admin: 10/28/19 06:16 Dose: 5 mg Pantoprazole Sodium (Protonix) 40 mg PO QDAC [facility] Last Admin: 10/28/19 06:14 Dose: 40 mg Petrolatum (Vaseline) 1 applic TOP PRN PRN PRN Reason: Skin Care Sodium Chloride (Normal Saline Flush 0.9%) 10 ml IVP PRN PRN PRN Reason: NEEDED PER PROVIDER ORDERS Last Admin: 10/27/19 06:42 Dose: 10 ml Sodium Chloride (Normal Saline Flush 0.9%) 10 ml IVP 0100,0900,1700 [facility] Last Admin: 10/28/19 09:53 Dose: 10 ml Spironolactone (Aldactone) 25 mg PO DAILY [facility] Last Admin: 10/28/19 09:52 Dose: 25 mg Witch Margie/Glycerin (Tucks) 1 pad TOP PRN PRN PRN Reason: ITCHING Zolpidem Tartrate (Ambien) 5 mg PO QPM PRN PRN Reason: Insomnia Aspirin Chewable [[place] Aspirin] 81 mg PO DAILY 03/02/13 Insulin Aspart [NovoLOG] 20 - 60 unit SUBQ BID 03/02/13 Insulin Glargine,Hum.rec.anlog [Lantus] 100 unit SQ BID 03/02/13 Liraglutide [Victoza 2-Yg] 1.8 mg SQ DAILY 03/02/13 Magnesium 200 mg PO DAILY 03/02/13 Metformin HCl [Metformin HCl ER] 850 mg PO TID 03/02/13 Metoprolol Succinate [Toprol Xl] 25 mg PO DAILY 03/02/13 [place]-3 Fatty Acids [Fish Oil] 1,000 mg PO DAILY 03/02/13 Telmisartan [Micardis] 80 mg PO DAILY 03/02/13 Atorvastatin Calcium [Lipitor] 80 mg PO QPM 02/06/15 Cetirizine HCl [Zyrtec] 10 mg PO DAILY 02/06/15 Multivitamin [Multiple Vitamins] 1 each PO DAILY 12/10/17 diphenhydrAMINE [Benadryl] 25 mg PO HS 12/10/17
[2019-10-28] MEDS ORDERED: ZOLPIDEM 5 MG TABLET PO PRN (11:24)
--- NOTE | 2019-10-28 11:58 | PHARMACY PROGRESS NOTE ---
- Best Possible Medication History Admit Date and Time: 10/27/19 0516 Processed by: Pharmacy Medication History completed: In progress As the person ultimately responsible for medication therapy, providers are able to order a medication from an existing home medication list in [facility] via the "Reconcile Routine" prior to Confirmation of that medication by direct support professional home health. Such practice is discouraged except when the physician, in their clinical judgment, deems that a medical need exists for a medication without regard to previous use.
--- NOTE | 2019-10-28 18:59 | PHARMACY PROGRESS NOTE ---
- Therapy Status Vancomycin regimen day #: 2 Therapy status: Awaiting steady state Basis for treatment: Empirical Treatment indication: cellulitis Trough goal: 15-20 (generally SSTI trough goal 10-15 depending if uncomplicated) Concurrent antibiotics: zosyn - GIOVANNI Risk Risk level for Acute Kidney Injury: High Acute Kidney Injury risk factors: Piperacillin/Tozobactam, Wt >100kg or BMI >40, Baseline BUN:SCr >20:1, Goal trough >15, Diabetes - Monitoring and Recommendation Clinical response to treatment: I&O Previous 24 hours 10/26/19 10/27/19 10/28/19 23:59 23:59 23:59 Intake Total 5278.584 3977.083 Output Total 2950 3450 Balance 2328.584 527.083 Lab Results 10/28/19 10/27/19 04:30 02:25 BUN 25 H 34 H Creatinine 1.2 1.6 H Estimated GFR (MDRD) 60 L 43 L Vancomycin Monitoring 10/28/19 07:30 Vancomycin Trough 15.3 Cultures 10/27/19 02:30 Blood Blood Culture - Preliminary NO GROWTH AFTER 1 DAY 10/27/19 02:25 Blood Blood Culture - Preliminary NO GROWTH AFTER 1 DAY Monitoring plan: Daily serum creatinine Next trough due prior to maintenance dose #: 4 Next trough due (date/time): 10/29 at 1930 Areas for additional monitoring: IV to PO when appropriate, Therapy de- escalation based on culture results, Acute Kidney Injury Pharmacy recommendation: Continue current regime
[2019-10-28] MEDS ORDERED: IOVERSOL 320 100 ML VIAL IVP ONE ×2 (19:01→20:30)
[2019-10-28 19:35] LABS: VANCOMYCIN,TROUGH 18.9 ug/mL (10.0-20.0)
--- NOTE | 2019-10-28 19:56 | XRAY Report ---
Reason: sob Procedure Date: 10/28/2019 Accession Number: [id number] / [id number] Procedure: XR - Chest 1 View X-Ray CPT Code: 31279 Final Report FULL RESULT: EXAM: CHEST RADIOGRAPHY EXAM DATE: 10/28/2019 07:07 PM. CLINICAL HISTORY: Sob. COMPARISON: CHEST 1 VIEW 10/27/2019 2:26 AM CHEST W/O 05/19/2019 10:06 AM. TECHNIQUE: 1 view. FINDINGS: Lungs/Pleura: No focal consolidation. No definite edema. No pleural effusion. No pneumothorax. Low expansion. Mediastinum: Within exam limitations, the cardiomediastinal contour is normal. Other: None. IMPRESSION: No acute findings. RADIA
--- NOTE | 2019-10-28 20:56 | CT Report ---
Reason: shortness of breath, if PE? Procedure Date: 10/28/2019 Accession Number: [id number] / [id number] Procedure: CT - ANGIO CHEST W/WO CPT Code: Final Report FULL RESULT: EXAM: CT ANGIOGRAM CHEST EXAM DATE: 10/28/2019 08:21 PM. CLINICAL HISTORY: Shortness of breath, if PE?. COMPARISON: CHEST W/O 05/19/2019 10:06 AM. TECHNIQUE: Routine helical imaging was performed through the chest in the pulmonary arterial phase. IV Contrast: 80 cc Optiray 320. Reconstructions: Sagittal, coronal, and 3D MIP. In accordance with CT protocol optimization, one or more of the following dose reduction techniques were utilized for this exam: automated exposure control, adjustment of mA and/or KV based on patient size, or use of iterative reconstructive technique. FINDINGS: Pulmonary Arteries: Diagnostic quality: Adequate through the segmental arteries. No evidence for acute or chronic pulmonary emboli. Continued dilation of main pulmonary artery measuring 3.7 cm, indicating a moderate artery hypertension. RV/LV is within normal limits. There is no interventricular septal bowing. There is no reflux of contrast material in the IVC. Lungs/Pleura: Scattered groundglass infiltrates predominantly in the upper lobes. Fibrotic changes in the periphery lung bases, right more than left. No consolidation, effusion, or pneumothorax. Mediastinum: Mild cardiomegaly. No pericardial effusion. Mild coronary artery calcification. No mediastinal lymphadenopathy. Thoracic Aorta: Mild dilation of ascending thoracic aorta measuring 4.6 cm, similar to previous exam. Upper Abdomen: Atrophic pancreas. Other: None. IMPRESSION: 1. Negative for pulmonary embolism at this time. 2. Scattered groundglass infiltrates, mild edema versus hypersensitivity pneumonitis or atypical infection. 3. Pulmonary artery hypertension, mild dilation of ascending thoracic aorta, and other chronic or incidental findings. RADIA
[2019-10-28] MEDS ORDERED: AZITHROMYCIN 250 MG TABLET PO STA (20:59)
[2019-10-28] MEDS: ACETAMINOPHEN 325 MG TABLET PO PRN (22:06)
[2019-10-29] MEDS: SODIUM CHLORIDE FLUSH 0.9% 10 ML SYRINGE IVP SCH ×3 (00:34→16:14)
[2019-10-29] MEDS: SODIUM CHLORIDE 0.9% 1,000 ML IV SCH (03:25)
[2019-10-29] MEDS: PIPERACILLIN/TAZOBACTAM 3.375 GM in SODIUM CHLORIDE 0.9% MINIBAG 100 ML IV SCH ×2 (05:19→16:13)
[2019-10-29 05:40] LABS: BASOPHILS % (AUTO) 0.4 %; EOSINOPHILS # (AUTO) 0.1 10^3/uL (0.0-0.7); EOSINOPHILS % (AUTO) 1.1 %; HGB - HEMOGLOBIN 11.3 g/dL (14.0-18.0); LYMPHOCYTES # (AUTO) 1.1 10^3/uL (1.5-3.5); LYMPHOCYTES % (AUTO) 12.9 %; MEAN CORPUSCULAR HEMOGLOBIN 29.7 pg (27.0-31.0); MEAN CORPUSCULAR HGB CONC 31.7 g/dL (32.0-36.0); MEAN CORPUSCULAR VOLUME 93.7 fL (80.0-94.0); MONOCYTES # (AUTO) 0.6 10^3/uL (0.0-1.0); MONOCYTES % (AUTO) 6.8 %; NEUTROPHILS # (AUTO) 6.5 10^3/uL (1.5-6.6); NEUTROPHILS % (AUTO) 77.4 %; PLT - PLATELET COUNT 143 10^3/uL (130-450); RED BLOOD COUNT 3.81 10^6/uL (4.70-6.10); RED CELL DISTRIBUTION WIDTH 13.3 % (12.0-15.0); WHITE BLOOD COUNT 8.4 x10^3/uL (4.8-10.8)
[2019-10-29 06:00] LABS: ALBUMIN 2.9 g/dL (3.2-5.5); ALBUMIN/GLOBULIN RATIO 0.8 (1.0-2.2); BILIRUBIN,TOTAL 0.8 mg/dL (0.2-1.0); CALCIUM 8.4 mg/dL (8.5-10.3); CREATININE 1.2 mg/dL (0.6-1.2); TOTAL PROTEIN 6.4 g/dL (6.7-8.2)
[2019-10-29] MEDS: PANTOPRAZOLE 40 MG TABLET PO SCH (07:00)
[2019-10-29] MEDS: METOPROLOL SUCCINATE 25 MG TABLET PO SCH ×2 (07:50→21:16)
[2019-10-29] MEDS: MAGNESIUM OXIDE 400 MG TABLET PO SCH (08:39)
[2019-10-29] MEDS: LOSARTAN 50 MG TABLET PO SCH (08:39)
[2019-10-29] MEDS: HEPARIN 5,000 UNIT/ML VIAL SUBQ SCH (08:41)
[2019-10-29] MEDS: INSULIN ASPART 300 UNIT/3 ML PEN SUBQ SCH ×4 (08:43→21:14)
[2019-10-29] MEDS: NYSTATIN POWDER 15 GM TOP SCH ×2 (08:44→21:22)
[2019-10-29] MEDS: ACETAMINOPHEN 325 MG TABLET PO PRN ×3 (08:49→21:21)
[2019-10-29] MEDS: VANCOMYCIN INJ 2 GM in SODIUM CHLORIDE 0.9% 500 ML IV SCH ×2 (09:54→20:23)
--- NOTE | 2019-10-29 13:03 | PROVIDER PROGRESS NOTE ---
Subjective - Prog Note Date Prog Note Date: 10/29/19 Prog Note Time: 11:00 - Subjective Pt reports feeling: Improved Subjective: Christiano complains of some increased shortness of breath, cough, and worries about the water blisters forming on his infected left lower leg. He admits to less pain from his cellulitis today. Current Medications - Current Medications Current Medications: Active Medications Acetaminophen (Tylenol) 650 mg PO Q8HR PRN Azithromycin (Zithromax) 250 mg PO DAILY MARI Guaifenesin/Codeine Phosphate (Robitussin Ac) 5 ml PO Q6HR PRN Lovenox SQ 40 mg BID Vancomycin HCl 2 gm/ Sodium (Chloride) 500 mls @ 250 mls/hr IV Q12H MARI Piperacillin Sod/Tazobactam (Sod 3.375 gm/ Sodium Chloride) 100 mls @ 25 mls/hr IV Q8H MARI Insulin Aspart (Novolog) 3 - 11 unit SUBQ 0800,1200,1700,2100 MARI; Protocol Lantus 20 units at HS Magnesium Oxide (Mag Ox) 400 mg PO DAILYWM MARI Metoprolol Succinate (Toprol Xl) 25 mg PO BID MARI Nystatin (Nystop) 1 applic TOP BID MARI Oxycodone HCl (Roxicodone) 5 mg PO Q4HR PRN Pantoprazole Sodium (Protonix) 40 mg PO QDAC MARI Petrolatum (Vaseline) 1 applic TOP PRN Witch Margie/Glycerin (Tucks) 1 pad TOP PRN Zolpidem Tartrate (Ambien) 5 mg PO QPM PRN HOME meds: Aspirin Chewable [[place] Aspirin] 81 mg PO DAILY 03/02/13 Insulin Aspart [NovoLOG] 30 - 90 unit SUBQ QPM 03/02/13 Insulin Glargine,Hum.rec.anlog [Lantus] 90 unit SQ DAILY 03/02/13 Metoprolol Succinate [Toprol Xl] 25 mg PO DAILY 03/02/13 [place]-3 Fatty Acids [Fish Oil] 1,000 mg PO DAILY 03/02/13 Telmisartan [Micardis] 80 mg PO DAILY 03/02/13 Atorvastatin Calcium [Lipitor] 80 mg PO QPM 02/06/15 Cetirizine HCl [Zyrtec] 10 mg PO DAILY PRN 02/06/15 Dulaglutide [Trulicity] 0.75 mg SQ MO 10/28/19 Finasteride 5 mg PO DAILY 10/28/19 Glimepiride 4 mg PO DAILY 10/28/19 Insulin Glargine [Lantus Solostar] 80 units SQ QPM 10/28/19 Magnesium 250 mg PO DAILY 10/28/19 Metformin HCl 850 mg PO TID 10/28/19 Objective - Vital Signs/Intake & Output Reviewed Vital Signs: Yes Vital Signs: Vital Signs x48h Temp Pulse Resp BP Pulse Ox 10/29/19 08:00 36.9 C 80 17 150/79 H 96 Intake & Output: Intake & Output 10/26/19 10/27/19 10/28/19 10/29/19 23:59 23:59 23:59 23:59 Intake Total 5278.584 6845.833 1880.083 Output Total 2950 4000 1400 Balance 2328.584 2845.833 480.083 - Objective General Appearance: positive: Alert, Moderate distress, Anxious Eyes Bilateral: positive: No lid inflammation Eyes: OU Conjunctivae pale ENT: positive: Pharyngeal erythema, Dry mucous membranes Neck: positive: Trachea midline Respiratory: positive: Chest non-tender, No respiratory distress Cardiovascular: positive: Irregularly irregular, JVD present, Systolic murmur, Decreased pulse(s) Peripheral Pulses: 2+ Radial (R), 2+ Radial (L) Abdomen: positive: Non-tender, Hepatomegaly, Abnml bowel sounds, Other Back: positive: Nml inspection Skin: positive: No rash, Warm, Dry, Cyanosis, Pallor Extremities: positive: Pedal edema Neurologic/Psychiatric: positive: Oriented x3, CN's nml (2-12), Motor nml, Weakness, Sensory loss, Depressed mood/affect Reflexes: Bicep (R): 3+, Bicep (L): 3+ - Lab Results Fish Bones: 10/29/19 05:03 10/29/19 05:03 Other Labs: Lab Results x24hrs 10/29/19 10/29/19 10/28/19 Range/Units 05:03 05:03 19:18 WBC 8.4 (4.8-10.8) x10^3/uL RBC 3.81 L (4.70-6.10) 10^6/uL Hgb 11.3 L (14.0-18.0) g/dL Hct 35.7 L (42.0-52.0) % MCV 93.7 (80.0-94.0) fL MCH 29.7 (27.0-31.0) pg MCHC 31.7 L (32.0-36.0) g/dL RDW 13.3 (12.0-15.0) % Plt Count 143 (130-450) 10^3/uL MPV 12.0 H (7.4-11.4) fL Neut # (Auto) 6.5 (1.5-6.6) 10^3/uL Lymph # (Auto) 1.1 L (1.5-3.5) 10^3/uL [place] # (Auto) 0.6 (0.0-1.0) 10^3/uL Eos # (Auto) 0.1 (0.0-0.7) 10^3/uL Baso # (Auto) 0.0 (0.0-0.1) 10^3/uL Absolute Nucleated RBC 0.00 x10^3/uL Nucleated RBC % 0.0 /100WBC Sodium 134 L (135-145) mmol/L Potassium 4.1 (3.5-5.0) mmol/L Chloride 103 (101-111) mmol/L Carbon Dioxide 22 (21-32) mmol/L Anion Gap 9.0 (6-13) BUN 21 H (6-20) mg/dL Creatinine 1.2 (0.6-1.2) mg/dL Estimated GFR (MDRD) 60 L (>89) Glucose 189 H (70-100) mg/dL Calcium 8.4 L (8.5-10.3) mg/dL Total Bilirubin 0.8 (0.2-1.0) mg/dL AST 159 H (10-42) IU/L ALT 92 H (10-60) IU/L Alkaline Phosphatase 60 (42-121) IU/L Total Creatine Kinase 2374 H* (22-269) IU/L Troponin I High Sens (2.3-19.7) ng/L Total Protein 6.4 L (6.7-8.2) g/dL Albumin 2.9 L (3.2-5.5) g/dL Globulin 3.5 (2.1-4.2) g/dL Albumin/Globulin Ratio 0.8 L (1.0-2.2) Last Dose Date 10/28/19 Last Dose Time 1125 Vancomycin Trough 18.9 (10.0-20.0) ug/mL 10/28/19 Range/Units 14:38 WBC (4.8-10.8) x10^3/uL RBC (4.70-6.10) 10^6/uL Hgb (14.0-18.0) g/dL Hct (42.0-52.0) % MCV (80.0-94.0) fL MCH (27.0-31.0) pg MCHC (32.0-36.0) g/dL RDW (12.0-15.0) % Plt Count (130-450) 10^3/uL MPV (7.4-11.4) fL Neut # (Auto) (1.5-6.6) 10^3/uL Lymph # (Auto) (1.5-3.5) 10^3/uL [place] # (Auto) (0.0-1.0) 10^3/uL Eos # (Auto) (0.0-0.7) 10^3/uL Baso # (Auto) (0.0-0.1) 10^3/uL Absolute Nucleated RBC x10^3/uL Nucleated RBC % /100WBC Sodium (135-145) mmol/L Potassium (3.5-5.0) mmol/L Chloride (101-111) mmol/L Carbon Dioxide (21-32) mmol/L Anion Gap (6-13) BUN (6-20) mg/dL Creatinine (0.6-1.2) mg/dL Estimated GFR (MDRD) (>89) Glucose (70-100) mg/dL Calcium (8.5-10.3) mg/dL Total Bilirubin (0.2-1.0) mg/dL AST (10-42) IU/L ALT (10-60) IU/L Alkaline Phosphatase (42-121) IU/L Total Creatine Kinase (22-269) IU/L Troponin I High Sens 51.4 H* (2.3-19.7) ng/L Total Protein (6.7-8.2) g/dL Albumin (3.2-5.5) g/dL Globulin (2.1-4.2) g/dL Albumin/Globulin Ratio (1.0-2.2) Last Dose Date Last Dose Time Vancomycin Trough (10.0-20.0) ug/mL ABX Reporting Has patient been on IV antibiotics over the past 48 hours?: Yes Assessment/Plan - Problem List (1) Rhabdomyolysis Impression: -Upon admission, elevated serum CK at 8987, now at 2374 -Elevated urine protein on admit -Status post continuous IV fluids, now stopped for suspected fluid overload -Hypertension with B/P 210/111, 150/79 also indicates fluid overload -No further confusion -No further ectopy on telemetry, discontinued telemetry -Routine labs, continue to trend CK levels Left leg cellulitis -Chronic venous status ulcers from PVD -Acute infection of the LLE with increased swelling, fluid filled blisters -No evidence of the redness becoming worse based on skin markings/photos -Continue IV zosyn/vancomycin, monitor for improvement Acute respiratory failure with hypoxia -Ongoing cough, congestion, and orthopnea -Requires 2L nasal cannula, no home oxygen -Uses CPAP, but not lately -Added Duo-nebs, incentive spirometry, and expectorants today Genital candidiasis in male -Continues on Nystatin powder Insulin dependent diabetes mellitus type 2 -Hemoglobin A1C was 8.6% -High dose lantus at home (100 units AM, 90 units PM), resuming today at 20 units at -Novolog 30-40 units with meals BID at home -Trulicity 0.75mg SQ weekly -Metformin 850 mg PO TID, now on HOLD -Blood sugars 188-272 in the past 24 hours -Continues on SSI and blood sugar checks, carb controlled diet Spinal stenosis -Patient notes that he has an upcoming surgery for this to be at a [facility] in the upcoming months -Underwent a nuculear stress test, which was noted to be abnormal -Outside records note that the patient would need a right and left cath for a complete work up -No chronic pain medications on med list from home or in record review -Taking oxycodone while in the hospital -Patient states that he stays very active on a daily basis -Complicated by morbid obesity, possible medical noncompliance, and insulin resistant diabetes Hypertension -High dose micardis at 80mg daily at home, losartan was started at the hospital - Metoprolol daily, adjusted to BID while in the hospital -More hypertension today, likely due to fluid overload -IV Lasix 40mg x1 -Starting spironolactone to treat pulmonary hypertension -Stopped IV fluids to treat rhabdomyolysis -Continue to monitor Severe pulmonary hypertension -Current echocardiogram states RVSP at rest of 69 mmHg, increased right heart pressures, preserved EF of 55% -Starting on spironolactone in the AM, IV Lasix x1 today, stopped IVFs -Most likely due to noncompliance with home CPAP -Hypoventilation syndrome from morbid obesity, now with acute respiratory failure
[2019-10-29] MEDS ORDERED: IPRATROPIUM/ALBUTEROL 3 ML NEB INH PRN (14:25)
[2019-10-29] MEDS ORDERED: SODIUM CHLORIDE 0.9% 500 ML IV PRN (16:01)
[2019-10-29] MEDS ORDERED: SODIUM CHLORIDE 0.9% 0 ML ONE (16:06)
[2019-10-29] MEDS: FUROSEMIDE 40 MG/4 ML VIAL IVP SCH (16:13)
[2019-10-29] MEDS ORDERED: FUROSEMIDE 40 MG/4 ML VIAL IVP SCH (17:00)
[2019-10-29] MEDS ORDERED: INSULIN GLARGINE 300 UNIT/3 ML PEN SUBQ SCH (21:00)
[2019-10-29] MEDS: AZITHROMYCIN 250 MG TABLET PO SCH (21:16)
[2019-10-29] MEDS: ENOXAPARIN 40 MG/0.4 ML SYRINGE SUBQ SCH (21:16)
[2019-10-29] MEDS: guaiFENesin 600 MG TABLET PO SCH (21:17)
[2019-10-30] MEDS: PIPERACILLIN/TAZOBACTAM 3.375 GM in SODIUM CHLORIDE 0.9% MINIBAG 100 ML IV SCH ×4 (00:05→21:46)
[2019-10-30] MEDS: SODIUM CHLORIDE FLUSH 0.9% 10 ML SYRINGE IVP SCH ×3 (01:34→16:29)
[2019-10-30] MEDS: guaiFENesin/CODEINE 5 ML UDC PO PRN (01:34)
[2019-10-30 06:17] LABS: BASOPHILS % (AUTO) 0.4 %; EOSINOPHILS # (AUTO) 0.2 10^3/uL (0.0-0.7); EOSINOPHILS % (AUTO) 2.3 %; HGB - HEMOGLOBIN 10.8 g/dL (14.0-18.0); LYMPHOCYTES % (AUTO) 12.5 %; MEAN CORPUSCULAR HEMOGLOBIN 29.7 pg (27.0-31.0); MEAN CORPUSCULAR HGB CONC 32.6 g/dL (32.0-36.0); MEAN CORPUSCULAR VOLUME 90.9 fL (80.0-94.0); MEAN PLATELET VOLUME 11.3 fL (7.4-11.4); MONOCYTES # (AUTO) 0.5 10^3/uL (0.0-1.0); NEUTROPHILS # (AUTO) 5.9 10^3/uL (1.5-6.6); NEUTROPHILS % (AUTO) 74.9 %; PLT - PLATELET COUNT 166 10^3/uL (130-450); RED BLOOD COUNT 3.64 10^6/uL (4.70-6.10); WHITE BLOOD COUNT 7.9 x10^3/uL (4.8-10.8)
[2019-10-30 06:28] LABS: ALBUMIN 2.7 g/dL (3.2-5.5); ALBUMIN/GLOBULIN RATIO 0.8 (1.0-2.2); BILIRUBIN,TOTAL 0.9 mg/dL (0.2-1.0); CALCIUM 8.2 mg/dL (8.5-10.3); CREATININE 0.9 mg/dL (0.6-1.2); MAGNESIUM 1.7 mg/dL (1.7-2.8); TOTAL PROTEIN 6.1 g/dL (6.7-8.2)
[2019-10-30] MEDS: PANTOPRAZOLE 40 MG TABLET PO SCH (06:37)
[2019-10-30] MEDS: AZITHROMYCIN 250 MG TABLET PO SCH (08:27)
[2019-10-30] MEDS: LOSARTAN 50 MG TABLET PO SCH (08:27)
[2019-10-30] MEDS: METOPROLOL SUCCINATE 25 MG TABLET PO SCH ×2 (08:28→20:00)
[2019-10-30] MEDS: ENOXAPARIN 40 MG/0.4 ML SYRINGE SUBQ SCH ×2 (08:28→20:00)
[2019-10-30] MEDS: guaiFENesin 600 MG TABLET PO SCH ×2 (08:28→20:00)
[2019-10-30] MEDS: MAGNESIUM OXIDE 400 MG TABLET PO SCH ×2 (08:28→17:09)
[2019-10-30] MEDS: FUROSEMIDE 40 MG/4 ML VIAL IVP SCH ×3 (08:30→20:06)
[2019-10-30] MEDS: INSULIN ASPART 300 UNIT/3 ML PEN SUBQ SCH ×4 (08:31→20:10)
[2019-10-30] MEDS: NYSTATIN POWDER 15 GM TOP SCH ×2 (08:43→20:06)
[2019-10-30] MEDS: SPIRONOLACTONE 25 MG TABLET PO SCH (09:15)
[2019-10-30] MEDS: VANCOMYCIN INJ 2 GM in SODIUM CHLORIDE 0.9% 500 ML IV SCH ×2 (09:59→19:41)
--- NOTE | 2019-10-30 11:33 | PROVIDER PROGRESS NOTE ---
Subjective - Prog Note Date Prog Note Date: 10/30/19 Prog Note Time: 11:31 - Subjective Pt reports feeling: Improved Subjective: Christiano states that he did not sleep well last night, but notes that his cough is much improved since being started on his diuretics. He denies chest pain, increased shortness of breath, nausea, vomiting, a new rash, or confusion. Current Medications - Current Medications Current Medications: Active Medications Acetaminophen (Tylenol) 650 mg PO Q8HR PRN PRN Reason: Pain or Fever > 38C (100.4F) Last Admin: 10/29/19 21:21 Dose: 650 mg Albuterol/Ipratropium (Duoneb) 3 ml INH Q4HR PRN PRN Reason: Wheezing Last Admin: 10/29/19 15:54 Dose: 3 ml Azithromycin (Zithromax) 250 mg PO DAILY [facility] Stop: 10/31/19 09:01 Last Admin: 10/30/19 08:27 Dose: 250 mg Enoxaparin Sodium (Lovenox) 40 mg SUBQ BID [facility] Last Admin: 10/30/19 08:28 Dose: 40 mg Furosemide (Lasix Inj 40 Mg Vial) 40 mg IVP DAILY [facility] Last Admin: 10/30/19 08:30 Dose: 40 mg Guaifenesin (Mucinex) 600 mg PO BID [facility] Last Admin: 10/30/19 08:28 Dose: 600 mg Guaifenesin/Codeine Phosphate (Robitussin Ac) 5 ml PO Q6HR PRN PRN Reason: Cough Last Admin: 10/30/19 01:34 Dose: 5 ml Vancomycin HCl 2 gm/ Sodium (Chloride) 500 mls @ 250 mls/hr IV Q12H [facility] Last Admin: 10/30/19 09:59 Dose: 250 mls/hr Sodium Chloride (Normal Saline 0.9%) 500 mls @ 0 mls/hr IV Q24H PRN PRN Reason: TKO RATE Last Infusion: 10/30/19 09:48 Dose: 0 mls/hr Piperacillin Sod/Tazobactam (Sod 3.375 gm/ Sodium Chloride) 100 mls @ 200 mls/hr IV Q6H [facility] Insulin Aspart (Novolog) 3 - 11 unit SUBQ 0800,1200,1700,2100 MARI; Protocol Last Admin: 10/30/19 08:31 Dose: 5 unit Insulin Glargine (Lantus Solostar) 25 unit SUBQ QPM [facility] Last Admin: 10/29/19 21:15 Dose: 20 unit Losartan Potassium (Cozaar) 50 mg PO DAILY [facility] Magnesium Oxide (Mag Ox) 400 mg PO DAILYWM [facility] Last Admin: 10/30/19 08:28 Dose: 400 mg Metoprolol Succinate (Toprol Xl) 25 mg PO BID [facility] Last Admin: 10/30/19 08:28 Dose: 25 mg Nystatin (Nystop) 1 applic TOP BID [facility] Last Admin: 10/30/19 08:43 Dose: 1 applic Oxycodone HCl (Roxicodone) 5 mg PO Q4HR PRN PRN Reason: Pain 5 to 7 Last Admin: 10/28/19 23:36 Dose: 5 mg Pantoprazole Sodium (Protonix) 40 mg PO QDAC [facility] Last Admin: 10/30/19 06:37 Dose: 40 mg Petrolatum (Vaseline) 1 applic TOP PRN PRN PRN Reason: Skin Care Sodium Chloride (Normal Saline Flush 0.9%) 10 ml IVP PRN PRN PRN Reason: NEEDED PER PROVIDER ORDERS Last Admin: 10/27/19 06:42 Dose: 10 ml Sodium Chloride (Normal Saline Flush 0.9%) 10 ml IVP 0100,0900,1700 [facility] Last Admin: 10/30/19 08:31 Dose: 10 ml Spironolactone (Aldactone) 25 mg PO DAILY [facility] Last Admin: 10/30/19 09:15 Dose: 25 mg Witch Margie/Glycerin (Tucks) 1 pad TOP PRN PRN PRN Reason: ITCHING Zolpidem Tartrate (Ambien) 5 mg PO QPM PRN PRN Reason: Insomnia Aspirin Chewable [[place] Aspirin] 81 mg PO DAILY 03/02/13 Insulin Aspart [NovoLOG] 30 - 90 unit SUBQ QPM 03/02/13 Insulin Glargine,Hum.rec.anlog [Lantus] 90 unit SQ DAILY 03/02/13 Metoprolol Succinate [Toprol Xl] 25 mg PO DAILY 03/02/13 [place]-3 Fatty Acids [Fish Oil] 1,000 mg PO DAILY 03/02/13 Telmisartan [Micardis] 80 mg PO DAILY 03/02/13 Atorvastatin Calcium [Lipitor] 80 mg PO QPM 02/06/15 Cetirizine HCl [Zyrtec] 10 mg PO DAILY PRN 02/06/15 Dulaglutide [Trulicity] 0.75 mg SQ MO 10/28/19 Finasteride 5 mg PO DAILY 10/28/19 Glimepiride 4 mg PO DAILY 10/28/19 Insulin Glargine [Lantus Solostar] 80 units SQ QPM 10/28/19 Magnesium 250 mg PO DAILY 10/28/19 Metformin HCl 850 mg PO TID 10/28/19 Objective - Vital Signs/Intake & Output Reviewed Vital Signs: Yes Vital Signs: Last Vital Signs Temp 36.7 C 10/30/19 00:59 Pulse 82 10/30/19 00:59 Resp 20 10/30/19 00:59 BP 139/81 H 10/30/19 00:59 Pulse Ox 98 10/30/19 00:59 Intake & Output: Intake & Output 10/27/19 10/28/19 10/29/19 10/30/19 23:59 23:59 23:59 23:59 Intake Total 5278.584 6845.833 4155.750 1489.00 Output Total 2950 4000 5830 2525 Balance 2328.584 2845.833 -1674.250 -1036.00 - Objective General Appearance: positive: No acute distress, Alert Eyes Bilateral: positive: No lid inflammation Eyes: OU Conjunctivae pale ENT: positive: Pharyngeal erythema, Dry mucous membranes Neck: positive: Lymphadenopathy (R), Lymphadenopathy (L), Stiff neck Respiratory: positive: Chest non-tender, No respiratory distress, Wheezes (expiratory), Rhonchi Cardiovascular: positive: JVD present, Systolic murmur, Decreased pulse(s) Peripheral Pulses: 1+ Radial (R), 1+ Radial (L) Abdomen: positive: Non-tender, Hepatomegaly, Other (obese, soft) Back: positive: Nml inspection Skin: positive: No rash, Warm, Dry, Cyanosis (evidence of longstanding poor perfusion to BLEs, chronic ulcers, flakey skin) Extremities: positive: Pedal edema, Joint swelling, Other (discoloration to BLEs, chronic ulcers, current infection to LLE) Neurologic/Psychiatric: positive: Oriented x3, CN's nml (2-12), Weakness, Sensory loss, Depressed mood/affect Reflexes: Bicep (R): 3+, Bicep (L): 3+, Ankle (R): 2+, Ankle (L): 2+ - Lab Results Fish Bones: 10/30/19 05:55 10/30/19 05:55 Other Labs: Lab Results x24hrs 10/30/19 10/30/19 10/30/19 Range/Units 05:55 05:55 05:55 WBC 7.9 (4.8-10.8) x10^3/uL RBC 3.64 L (4.70-6.10) 10^6/uL Hgb 10.8 L (14.0-18.0) g/dL Hct 33.1 L (42.0-52.0) % MCV 90.9 (80.0-94.0) fL MCH 29.7 (27.0-31.0) pg MCHC 32.6 (32.0-36.0) g/dL RDW 13.0 (12.0-15.0) % Plt Count 166 (130-450) 10^3/uL MPV 11.3 (7.4-11.4) fL Neut # (Auto) 5.9 (1.5-6.6) 10^3/uL Lymph # (Auto) 1.0 L (1.5-3.5) 10^3/uL [place] # (Auto) 0.5 (0.0-1.0) 10^3/uL Eos # (Auto) 0.2 (0.0-0.7) 10^3/uL Baso # (Auto) 0.0 (0.0-0.1) 10^3/uL Absolute Nucleated RBC 0.00 x10^3/uL Nucleated RBC % 0.0 /100WBC Sodium 133 L (135-145) mmol/L Potassium 4.3 (3.5-5.0) mmol/L Chloride 101 (101-111) mmol/L Carbon Dioxide 23 (21-32) mmol/L Anion Gap 9.0 (6-13) BUN 17 (6-20) mg/dL Creatinine 0.9 (0.6-1.2) mg/dL Estimated GFR (MDRD) 83 L (>89) Glucose 206 H (70-100) mg/dL Calcium 8.2 L (8.5-10.3) mg/dL Magnesium 1.7 (1.7-2.8) mg/dL Total Bilirubin 0.9 (0.2-1.0) mg/dL AST 106 H (10-42) IU/L ALT 89 H (10-60) IU/L Alkaline Phosphatase 59 (42-121) IU/L Total Creatine Kinase 848 H (22-269) IU/L B-Natriuretic Peptide 382 H (5-100) pg/mL Total Protein 6.1 L (6.7-8.2) g/dL Albumin 2.7 L (3.2-5.5) g/dL Globulin 3.4 (2.1-4.2) g/dL Albumin/Globulin Ratio 0.8 L (1.0-2.2) ABX Reporting Has patient been on IV antibiotics over the past 48 hours?: Yes Assessment/Plan - Problem List (1) Rhabdomyolysis Impression: -Upon admission, elevated serum CK at 8987, now at 848 -Elevated urine protein on admit -Status post continuous IV fluids, stopped on 10/29 for fluid overload -Hypertension has resolved, no tachycardia -No further confusion -Routine labs, treat infection, continue to trend CK levels Left leg cellulitis -Chronic venous status ulcers from PVD -Acute infection of the LLE with increased swelling, fluid filled blisters- now nearly resolved -No evidence of the redness becoming worse based on skin markings/photos -Still with moderate redness, swelling, pain to LLE -Continue IV zosyn/vancomycin, monitor for improvement Acute respiratory failure with hypoxia -Ongoing cough, congestion, and orthopnea -Requires 2L nasal cannula, no home oxygen -Uses CPAP, but not lately -Added Duo-nebs, incentive spirometry, and expectorants which have resolved ongoing cough -Patient encouraged to continue incentive spirometry several times per hour Genital candidiasis in male -Continues on Nystatin powder Insulin dependent diabetes mellitus type 2 -Hemoglobin A1C was 8.6% -High dose lantus at home (100 units AM, 90 units PM) -Adjusted today from 20 units to 25 units at HS -Novolog 30-40 units with meals BID at home -Trulicity 0.75mg SQ weekly -Metformin 850 mg PO TID, now on HOLD -Blood sugars 220-223 in the past 24 hours -Continues on SSI and blood sugar checks, carb controlled diet Spinal stenosis -Patient notes that he has an upcoming surgery for this to be at a [facility] in the upcoming months -Underwent a nuculear stress test, which was noted to be abnormal -Outside records note that the patient would need a right and left cath for a complete work up, patient denies any such procedure -No chronic pain medications on med list from home or in record review -Taking oxycodone while in the hospital -Patient states that he stays very active on a daily basis -States he had never tried gabapentin, may suggest upon discharge if renal labs remain ok -Complicated by morbid obesity, possible medical noncompliance, and insulin resistant diabetes Hypertension -High dose micardis at 80mg daily at home, losartan was started at the hospital - Metoprolol daily, adjusted to BID while in the hospital -No hypertension today, likely due to fluid overload yesterday -IV Lasix 40mg now daily -Starting spironolactone to treat pulmonary hypertension, first dose this AM -Stopped IV fluids to treat rhabdomyolysis on 10/29 -Adjusted Losartan down to allow for diuresis -Continues with an indwelling morrell -Continue to monitor Severe pulmonary hypertension -Current echocardiogram states RVSP at rest of 69 mmHg, increased right heart pressures, preserved EF of 55% -Started on spironolactone today, IV Lasix daily, stopped IVFs -Most likely due to noncompliance with home CPAP -Hypoventilation syndrome from morbid obesity, now with acute respiratory failure
[2019-10-30] MEDS: ACETAMINOPHEN 325 MG TABLET PO PRN (13:07)
[2019-10-30] MEDS ORDERED: INSULIN GLARGINE 300 UNIT/3 ML PEN SUBQ SCH (21:00)
[2019-10-31] MEDS: PIPERACILLIN/TAZOBACTAM 3.375 GM in SODIUM CHLORIDE 0.9% MINIBAG 100 ML IV SCH ×2 (04:00→10:33)
[2019-10-31] MEDS: SODIUM CHLORIDE FLUSH 0.9% 10 ML SYRINGE IVP SCH ×2 (04:10→08:49)
[2019-10-31 05:43] LABS: BASOPHILS % (AUTO) 0.4 %; EOSINOPHILS # (AUTO) 0.2 10^3/uL (0.0-0.7); EOSINOPHILS % (AUTO) 2.2 %; HGB - HEMOGLOBIN 11.5 g/dL (14.0-18.0); LYMPHOCYTES # (AUTO) 1.1 10^3/uL (1.5-3.5); MEAN CORPUSCULAR HEMOGLOBIN 29.8 pg (27.0-31.0); MEAN CORPUSCULAR HGB CONC 33.1 g/dL (32.0-36.0); MEAN CORPUSCULAR VOLUME 89.9 fL (80.0-94.0); MEAN PLATELET VOLUME 11.5 fL (7.4-11.4); MONOCYTES # (AUTO) 0.5 10^3/uL (0.0-1.0); MONOCYTES % (AUTO) 5.9 %; NEUTROPHILS # (AUTO) 5.6 10^3/uL (1.5-6.6); NEUTROPHILS % (AUTO) 72.6 %; PLT - PLATELET COUNT 216 10^3/uL (130-450); RED BLOOD COUNT 3.86 10^6/uL (4.70-6.10); RED CELL DISTRIBUTION WIDTH 12.7 % (12.0-15.0); WHITE BLOOD COUNT 7.8 x10^3/uL (4.8-10.8)
[2019-10-31 05:52] LABS: ALBUMIN 2.7 g/dL (3.2-5.5); ALBUMIN/GLOBULIN RATIO 0.7 (1.0-2.2); BILIRUBIN,TOTAL 0.9 mg/dL (0.2-1.0); CALCIUM 8.8 mg/dL (8.5-10.3); CREATININE 1.1 mg/dL (0.6-1.2); TOTAL PROTEIN 6.6 g/dL (6.7-8.2)
[2019-10-31] MEDS: PANTOPRAZOLE 40 MG TABLET PO SCH (06:31)
--- NOTE | 2019-10-31 07:47 | Discharge Plan ---
Discharge Plan Problem Reviewed?: Yes Disposition: Home Health Service Condition: Good Prescriptions: Clindamycin HCl [Clindamycin 150MG CAP] 450 mg PO Q8H #60 capsule Furosemide [Lasix] 20 mg PO DAILY #30 tablet Gauze Bandage [Rolled Gauze] 1 each TP DAILY #30 bandage guaiFENesin [Mucinex] 600 mg PO BID #60 tablet levoFLOXacin [Levofloxacin] 500 mg PO DAILY #5 tablet Nystatin [Nystop] 1 applic TOP BID #1 bottle Petrolatum,White [Petrolatum] 100 gm TP DAILY #1 oint...g. Spironolactone [Aldactone] 25 mg PO DAILY #30 tablet Telmisartan [Micardis] 40 mg PO DAILY #30 tablet Diet: Diabetic Activity Restrictions: Activity as Tolerated Assistance Devices: Walker (beriatric walker) Weight Bearing: Full Weight Instruction Topics: Clindamycin capsules, Levofloxacin tablets, Nystatin topical powder, Furosemide tablets, Spironolactone tablets, Hypertension Control, Diabetes Sick Day Plan, Cellulitis Dc Health Concerns: Left lower extremity cellulitis Rhabdomyolysis Severe pulmonary hypertension Oxygen dependence Falls Insulin dependent DM type 2 Spinal stenosis Plan of Treatment: Continue oral antibiotics at home Continue diuretics at home Home health for physical therapy Wear CPAP to treat obstructive sleep apnea Keep legs elevated as much as possible to prevent fluid from pooling in your legs and improve circulation Care Goals: Avoid hospital stays, or ED visits Complete treatment for cellulitis Control blood sugars to prevent recurrent infections Assessment: You were hospitalized for left lower extremity cellulitis and rhabdomyolysis which was treated using IV fluids, IV antibiotics. Your infection improved, and your fluid status was managed using diuretics. An echocardiogram showed severe pulmonary hypertension, which is best treated by using your home CPAP and you were started on a medication called Spironolactone, which also preserves heart function and helps reduce pulmonary pressures. Physical therapy recommended home health PT, and a bariactric front wheeled walker to keep you safe at home. Follow-Up Care: Home Health - RN (wound care), Home Health - PT No Smoking: If you smoke, Please STOP! Call for help. Follow-up with: Ludwin Washburn MD [Primary Care Provider] -
--- NOTE | 2019-10-31 07:55 | DISCHARGE SUMMARY ---
Discharge Summary Admit Date: 10/27/19 Discharge Date: 10/31/19 Discharging Provider: KARL Miles Primary Care Provider: Velasquez Washburn Code Status: Attempt Resuscitation Condition at Discharge: Good Discharge Disposition: Home Health Service - DIAGNOSES Admission Diagnoses: Cellulitis Genital candidiasis in male Rhabdomyolysis Arrhythmia Diabetes mellitus Spinal stenosis Hypertension Hyperlipidemia Discharge Diagnoses with Status of Each Condition: Rhabdomyolysis-New on this admission, resolved Left leg cellulitis-Recurrent, patient will continue oral antibiotics at home Chronic cutaneous venous stasis ulcer-chronic,stable Acute respiratory failure with hypoxia-New, resolved, no home oxygen was needed Genital candidiasis in male-Nearly resolved with Nystatin powder to yeasty groin folds Insulin dependent type 2 diabetes mellitus-Chronic, no changes to his home routine Spinal stenosis-Chronic, patient is awaiting surgery in the future Hypertension-Chronic, meds adjusted to allow for diuretics Moderate to severe pulmonary hypertension-Started on diuretics, to continue at home ALANA-Encouraged home CPAP compliance, stable Medical noncompliance-Chronic LVH (left ventricular hypetrophy)-Found on echocardiogram, continue diuretics BPH associated nocturia-Camacho was removed, patient was urinating prior to discharge, no changes to BPH meds at home - HPI History of Present Illness: HPI per Dr. Perez: Patient is a 73 y/o morbidly obese male who presented to the ED with weakness, left lower extremity redness and swelling. The weakness has been going on for 3 days. Tonight he fell out of bed, bruising his right side in the process. He was unable to get up due to weakness and has a bruise on his left knee from crawling on the floor. His neighbor came to his aid and called EMS. In the ED he is noted to have significant redness in his left lower extremity, old scabs and a +1 edema. There is also less redness noted on the proximal aspect of the left inner thigh. He has significant yeast infection in the groin area. He denies chest pain but has muskuloskeletal pain in the region of his right ribs due to the fall. He has a cough which he says is occasionally productive of yellow sputum. He denies abdominal pain, n/v/d, fever or chills. He was found to have a WBC of 12.7 in the ED. He is being admitted for further treatment He has DM II and is on lantus bid and trulicity. He lives alone and is usually independent of activities of daily living. He gets around with a cane due to severe spinal stenosis for which he has seen Dr Santana with [facility]. - HOSPITAL COURSE Hospital Course: The patient was hospitalized for left lower extremity cellulitis and rhabdomyolysis which was treated using IV fluids, IV antibiotics. The patient's LLE infection improved, and he as started on diuretics to manage his fluid status. An echocardiogram showed severe pulmonary hypertension, which is best treated by ensuring compliance with his home CPAP and he was started on Spironolactone, which also preserves heart function and helps reduce pulmonary pressures. Physical therapy recommended home health PT, and a bariactric front wheeled walker. Home health longterm was ordered for ongoing wound care for his chronic venous stasis ulcers. - ALLERGIES Allergies/Adverse Reactions: Allergies Allergy/AdvReac Type Severity Reaction Status Date / Time hydrochlorothiazide AdvReac Severe pancreatiti Verified 10/27/19 02:06 s adhesive tape AdvReac Itching Verified 10/27/19 02:06 - MEDICATIONS Home Medications: Ambulatory Orders Medication Instructions Recorded Confirmed Aspirin Chewable [[place] 81 mg PO DAILY 03/02/13 10/28/19 Aspirin] Insulin Aspart [NovoLOG] 30 - 90 unit SUBQ QPM 03/02/13 10/28/19 Insulin Glargine,Hum.rec.anlog 90 unit SQ DAILY 03/02/13 10/28/19 [Lantus] Metoprolol Succinate [Toprol Xl] 25 mg PO DAILY 03/02/13 10/28/19 A[place]man-3 Fatty Acids [Fish Oil] 1,000 mg PO DAILY 03/02/13 10/28/19 Atorvastatin Calcium [Lipitor] 80 mg PO QPM 02/06/15 10/28/19 Cetirizine HCl [Zyrtec] 10 mg PO DAILY PRN 02/06/15 10/28/19 Dulaglutide [Trulicity] 0.75 mg SQ MO 10/28/19 10/28/19 Finasteride 5 mg PO DAILY 10/28/19 10/28/19 Glimepiride 4 mg PO DAILY 10/28/19 10/28/19 Insulin Glargine [Lantus Solostar] 80 units SQ QPM 10/28/19 10/28/19 Magnesium 250 mg PO DAILY 10/28/19 10/28/19 Metformin HCl 850 mg PO TID 10/28/19 10/28/19 Clindamycin HCl [Clindamycin 150MG 450 mg PO Q8H #60 capsule 10/31/19 CAP] Furosemide [Lasix] 20 mg PO DAILY #30 tablet 10/31/19 Gauze Bandage [Rolled Gauze] 1 each TP DAILY #30 bandage 10/31/19 Nystatin [Nystop] 1 applic TOP BID #1 bottle 10/31/19 Petrolatum,White [Petrolatum] 100 gm TP DAILY #1 oint...g. 10/31/19 Spironolactone [Aldactone] 25 mg PO DAILY #30 tablet 10/31/19 Telmisartan [Micardis] 40 mg PO DAILY #30 tablet 10/31/19 guaiFENesin [Mucinex] 600 mg PO BID #60 tablet 10/31/19 levoFLOXacin [Levofloxacin] 500 mg PO DAILY #5 tablet 10/31/19 - PHYSICAL EXAM AT DISCHARGE General Appearance: positive: No acute distress, Alert Eyes Bilateral: positive: PERRL, No lid inflammation ENT: positive: Pharyngeal erythema, Dry mucous membranes Neck: positive: Trachea midline, Stiff neck Respiratory: positive: Chest non-tender, No respiratory distress, Breath sounds nml (diminished throughout) Cardiovascular: positive: Regular rate & rhythm, No gallop, Systolic murmur, Decreased pulse(s) Peripheral Pulses: positive: 1+, Other (doppler pulses BLEs) Abdomen: positive: Non-tender, Nml bowel sounds, Hepatomegaly, Other (firm, rounded, obese) Back: positive: Nml inspection Skin: positive: No rash, Warm, Dry, Cyanosis (BLEs appear deep purple while patient is in the chair with dependent edema) Extremities: positive: Non-tender, Pedal edema, Joint swelling, Other (chronic discoloration to BLEs, ongoing ulcers, scabbed knees) Neurologic/Psychiatric: positive: Oriented x3, CN's nml (2-12), Motor nml, Weakness, Sensory loss, Depressed mood/affect Reflexes: Bicep (R): 3+, Bicep (L): 3+ - LABS Result Diagrams: 10/31/19 05:16 10/31/19 05:16 - FOLLOW UP Follow Up: See PCP within one week. - TIME SPENT Time Spent in Discharge (Minutes): 65
[2019-10-31] MEDS: SPIRONOLACTONE 25 MG TABLET PO SCH (08:45)
[2019-10-31] MEDS: INSULIN ASPART 300 UNIT/3 ML PEN SUBQ SCH ×2 (08:45→12:47)
[2019-10-31] MEDS: FUROSEMIDE 40 MG/4 ML VIAL IVP SCH (08:46)
[2019-10-31] MEDS: AZITHROMYCIN 250 MG TABLET PO SCH (08:46)
[2019-10-31] MEDS: METOPROLOL SUCCINATE 25 MG TABLET PO SCH (08:46)
[2019-10-31] MEDS: guaiFENesin 600 MG TABLET PO SCH (08:46)
[2019-10-31] MEDS: ENOXAPARIN 40 MG/0.4 ML SYRINGE SUBQ SCH (08:46)
[2019-10-31] MEDS: MAGNESIUM OXIDE 400 MG TABLET PO SCH (08:47)
[2019-10-31] MEDS: VANCOMYCIN INJ 2 GM in SODIUM CHLORIDE 0.9% 500 ML IV SCH (08:47)
[2019-10-31] MEDS: NYSTATIN POWDER 15 GM TOP SCH (08:48)
[2019-10-31] MEDS ORDERED: LOSARTAN 50 MG TABLET PO SCH (09:00)
[2019-10-31 09:02] VITALS: BP 115/70
[2019-10-31] MEDS: SODIUM CHLORIDE FLUSH 0.9% 10 ML SYRINGE IVP PRN (10:33)
== END 2019-10-31 16:46 | disposition home health service (06) | DRG 602 ==
LOC: EDUNIT# → ED 01:49 → MS3 05:16 → MS2 10-29 14:50
PROVIDERS: ADMIT Internal Medicine; ATTEND Nurse Practitioner
DX: L03.116 Cellulitis of left lower limb (principal); B37.2 Candidiasis of skin and nail; J96.01 Acute respiratory failure with hypoxia; E86.0 Dehydration; R53.1 Weakness; I10 Essential (primary) hypertension; G47.30 Sleep apnea, unspecified; M48.00 Spinal stenosis, site unspecified; R35.0 Frequency of micturition; R33.9 Retention of urine, unspecified; B37.49 Other urogenital candidiasis; M62.82 Rhabdomyolysis; Z68.41 Body mass index [BMI] 40.0-44.9, adult; L97.829 Non-pressure chronic ulcer of other part of left lower leg with unspecified severity; E11.622 Type 2 diabetes mellitus with other skin ulcer; E11.51 Type 2 diabetes mellitus with diabetic peripheral angiopathy without gangrene; I87.2 Venous insufficiency (chronic) (peripheral); E11.649 Type 2 diabetes mellitus with hypoglycemia without coma; I27.23 Pulmonary hypertension due to lung diseases and hypoxia; G47.33 Obstructive sleep apnea (adult) (pediatric); I11.9 Hypertensive heart disease without heart failure; E78.5 Hyperlipidemia, unspecified; M48.061 Spinal stenosis, lumbar region without neurogenic claudication; N40.1 Benign prostatic hyperplasia with lower urinary tract symptoms; R35.1 Nocturia; E66.01 Morbid (severe) obesity due to excess calories; S20.211A Contusion of right front wall of thorax, initial encounter; S80.02XA Contusion of left knee, initial encounter; W06.XXXA Fall from bed, initial encounter; Y92.003 Bedroom of unspecified non-institutional (private) residence as the place of occurrence of the external cause; Y92.009 Unspecified place in unspecified non-institutional (private) residence as the place of occurrence of the external cause; I49.9 Cardiac arrhythmia, unspecified; H54.7 Unspecified visual loss; Z74.09 Other reduced mobility; Z91.19 Patient's noncompliance with other medical treatment and regimen; Z99.81 Dependence on supplemental oxygen; Z91.81 History of falling; Z79.82 Long term (current) use of aspirin; Z79.4 Long term (current) use of insulin; Z87.891 Personal history of nicotine dependence
CPT/HCPCS: 36415; 71045; 71275; 80053; 80202; 81001; 82009; 82550; 82803; 83036; 83605; 83690; 83735; 83880; 84100; 84484; 85025; 85379; 87040; 93005; 93306; 93971; 94640; 96360; 96361; 97116; 97161; 97165; 97530; 99284; 99285; A9270; J1650; J1815; J3370; Q9967; 81003; 87086

== ENCOUNTER 2019-12-12 15:39 | Outpatient (CLI) | payer MEDICARE, OTHER ==
[2019-12-12 18:41] LABS: ALBUMIN 3.8 g/dL (3.2-5.5); BILIRUBIN,TOTAL 0.9 mg/dL (0.2-1.0); CALCIUM 9.4 mg/dL (8.5-10.3); CREATININE 1.1 mg/dL (0.6-1.2); TOTAL PROTEIN 7.6 g/dL (6.7-8.2)
[2019-12-12 18:44] LABS: HB2 TOTAL 12.4 g/dL; HEMOGLOBIN A1C 0.83 g/dL; HEMOGLOBIN A1C % 8.3 % (4.6-6.2)
== END 2019-12-12 23:59 | disposition home or self-care (01) ==
LOC: LAB.WCP 15:39
PROVIDERS: ATTEND Family Medicine
DX: R60.0 Localized edema (principal); E11.49 Type 2 diabetes mellitus with other diabetic neurological complication
CPT/HCPCS: 36415; 80053; 83036

== ENCOUNTER 2019-12-15 10:15 | Outpatient (CLI) | payer MEDICARE, OTHER | END 2019-12-15 23:59 | disposition home or self-care (01) | LOC: LAB.R 10:15 | PROVIDERS: ATTEND Family Medicine | DX: L03.116 Cellulitis of left lower limb (principal) | CPT/HCPCS: 87070; 87205 ==

== ENCOUNTER 2020-04-09 15:07 | Outpatient (CLI) | payer MEDICARE, OTHER ==
--- NOTE | 2020-04-09 15:05 | SLEEP CARE CONSULTATION ---
Information from patient questionnaire entered by Larissa Maldonado. I have reviewed and concur with the information entered by Larissa Maldonado. This document represents the service I personally performed and the decisions made by me, Alisa Early MD, [facility]. History of Present Illness Service Date and Time: 04/09/2020 1440 Reason for Visit: New patient, Previously diagnosed sleep apnea (moderate AHI - 18.5), sleep apnea on CPAP therapy ([employer]), Re-establish care Chief Complaint: reports: Fatigue, Frequent awakenings at night Duration of Symptoms: 2 years Usual bedtime: 12 - 1 am Time it takes to fall asleep: no problem Snores at night: Yes (not sure, but have been told i do) Observed to quit breathing while asleep: No Sleeps alone due to snoring: No Number of times waking at night: about every 1.5 hours Reasons for waking at night: reports: Bathroom Toss, Turn, or Twitch while sleeping: No Recalls having dreams: Yes Usually gets out of bed at: 7:30-10:30 am Feels refreshed in the morning: No Morning headache: No Sleepy or fatigued during the day: Yes Ever fallen asleep while driving: Yes Takes day naps: Yes Dreams during day naps: No Prior sleep studies: Yes [facility] and [facility] Additional HPI information: The patient returns after last seen 6 years ago for moderate ALANA. He said he quit using his CPAP in 2016 because he was not getting supplies from [employer]. He would like to restart the treatment. He was using nose pillows before he quit. His weight has been about the same at 350 - 380 lbs. - Parasomnia Symptoms Ever been unable to move upon waking from sleep: No Ever felt weak in the knees when startled or emotional: No Bothered by creepy, crawly, restless sensations in legs: No Problems with memory or concentration: No Subjective Initial [place] Sleepiness Scale score: 3 (in 2013) Current [place] Sleepiness Scale score: 9 Past Medical History Past Medical History: reports: Diabetes, Arthritis, Insulin resistance, Other (spinal stenosis (need surgery)) Social History The patient's occupation is a Retired. Patient is and lives in [place]. Have you smoked in the past 12 months: Yes Cigarettes per day (20/pack): 60 Years of smokin Quit date: 1967 Smoking Pack Years: 36.0 Alcohol use: Yes Alcohol amount and frequency: very little - infrequently Caffeine use: Yes Caffeine amount and frequency: 2 pots a day coffee/tea Family History Family history of sleep disordered breathing: Yes Allergies and Home Medications Drug allergies reviewed: Yes Home medication list reviewed: Yes Review of Systems Cardiovascular: reports: high blood pressure, leg or foot swelling Respiratory: reports: shortness of breath, sputum production Gastrointestinal: denies: heartburn, difficulty swallowing, nausea, vomitting, diarrhea, abdominal pain, other Urinary: reports: frequency Neurological: denies: headaches, seizure, head trauma, disorientation, speech dysfunction, gait or balance problems, fainting or unconsciousness, other Ear/Nose/Throat: reports: nasal congestion, wisdom teeth removed Endocrine: reports: excessive thirst, increased urination, unexplained weakness Musculoskeletal: reports: back pain, muscle pain or cramping Immunologic: reports: sneezing Physical Exam Vital signs obtained and entered by: Deferred due to COVID-19 Height: 6 ft 6 in Weight: 350 lb Body Mass Index: 40.4 BMI Classification: Morbidly Obese Impression and Plan IMPRESSION: 1. Obstructive Sleep Apnea-Hypopnea Syndrome, moderate, as previously diagnosed, but presently untreated. The patient would like to go back on the treatment. Narrow oropharynx and obesity are common predisposing factors for obstructive sleep apnea-hypopnea syndrome. Pathophysiology of sleep-disordered breathing was discussed. I recommend repeating the in-laboratory polysomnography to confirm the diagnosis and to reassess severity. After the sleep study, I can then order him a new machine. Plan: 1. Schedule an in-laboratory polysomnography. 2. Avoid long distance driving or when feeling sleepy. 3. Avoid alcohol, sedative and muscle relaxant around bedtime. 4. Attempt to lose weight. 5. Return for a follow up after the sleep study. Visit Type: In Office Time Spent with Patient (minutes): 15 Provider Statement: I spent 100% of the Face to Face Visit with the patient with greater than 50% spent counseling the patient and coordination of care.
== END 2020-04-09 15:08 | disposition home or self-care (01) ==
LOC: SC 15:07
PROVIDERS: ATTEND Internal Medicine Pulmonary Disease
DX: G47.33 Obstructive sleep apnea (adult) (pediatric) (principal); E66.01 Morbid (severe) obesity due to excess calories; Z68.41 Body mass index [BMI] 40.0-44.9, adult
CPT/HCPCS: 99203; G0463; 99212

== ENCOUNTER 2020-04-29 19:28 | Outpatient (CLI) | payer MEDICARE, OTHER | END 2020-04-29 19:29 | disposition home or self-care (01) | LOC: SC 19:28 | PROVIDERS: ATTEND Internal Medicine Pulmonary Disease | DX: G47.31 Primary central sleep apnea (principal); G47.61 Periodic limb movement disorder; I49.3 Ventricular premature depolarization | CPT/HCPCS: 95810 ==

== ENCOUNTER 2020-05-03 08:00 | Outpatient (CLI) | payer MEDICARE, OTHER ==
[2020-05-03 19:18] LABS: CALCIUM 9.7 mg/dL (8.5-10.3); CREATININE 1.5 mg/dL (0.6-1.2)
[2020-05-03 19:30] LABS: HB2 TOTAL 13.6 g/dL; HEMOGLOBIN A1C 0.94 g/dL; HEMOGLOBIN A1C % 8.5 % (4.6-6.2)
[2020-05-03 19:42] LABS: CREATININE,URINE 104.2 mg/dL; MICROALBUM/CREATININE RATIO,UR 75.8 ug/mg (<30.0); MICROALBUMIN,URINE 7.9 mg/dL (0-300.0)
== END 2020-05-03 23:59 | disposition home or self-care (01) ==
LOC: LAB.WCP 08:00
PROVIDERS: ATTEND Family Medicine
DX: I10 Essential (primary) hypertension (principal); E11.9 Type 2 diabetes mellitus without complications; L03.116 Cellulitis of left lower limb
CPT/HCPCS: 36415; 80048; 82043; 82570; 83036

== ENCOUNTER 2020-07-09 19:33 | Outpatient (CLI) | payer MEDICARE, OTHER | END 2020-07-09 19:34 | disposition home or self-care (01) | LOC: SC 19:33 | PROVIDERS: ATTEND Nurse Practitioner Family | DX: G47.31 Primary central sleep apnea (principal); G47.61 Periodic limb movement disorder; I47.2 Ventricular tachycardia | CPT/HCPCS: 95811 ==

== ENCOUNTER 2020-07-16 11:18 | Outpatient (CLI) | payer MEDICARE, OTHER ==
[2020-07-16 12:22] VITALS: BP 124/70
--- NOTE | 2020-07-16 12:22 | SLEEP CARE CONSULTATION ---
Information from patient questionnaire entered by Larissa Maldonado. I have reviewed and concur with the information entered by Larissa Maldonado. This document represents the service I personally performed and the decisions made by me, Magdalena Tabares, RN, MSN, [employer]. History of Present Illness Service Date and Time: 07/16/2020 1118 Previous diagnosis: Moderate, Obstructive Sleep Apnea-Hypopnea Syndrome AHI: 18.5 (in 2014) Reason for follow up: first compliance after device update, with manual titration Equipment type: CPAP Equipment obtained from: [employer] Mask style: Full face (Dreamwear) Backup mask available: No (keep current mask as spare) Last cushion change: a few days ago Prior sleep studies: Yes Year and Where: 2013 - [facility] Type of Sleep Study: Polysomnography Sleep Study - Results Prior sleep studies: Yes Year and Where: 2013 - [facility] Polysomnography/Home Sleep Study results: The quality of the study is good. CPAP was initiated at 4 cmH2O and titrated up to CPAP at 12 cmH2O. None of the tested pressures appeared to be effective (AHI of 48.5 per hour on the final pressure). The residual respiratory events were Low-Owens respiration. Oxygen saturation was minimally low. The patient did not positive airway pressure therapy well. The patients sleep efficiency was poor. The sleep architecture was abnormal for sleep fragmentation and lack of slow wave sleep (N3). There was severe periodic leg movement of sleep contributing to the sleep fragmentation. Cardiac rhythm was sinus rhythm with frequent premature ventricular contractions, occasionally in couplets, triplets, and short non-sustained ventricular tachycardia No abnormal behavior (parasomnia) observed during the night. CPAP Compliance Data - Data Reviewed with Patient Average duration of nightly device use: 6.4 Compliance rate %: 97 Current pressure setting (cmH2O): 5-15 Humidity settin Average residual AHI: 4.4 (95th % 9.2cmH20 / median pressure 6.3cmH20) Subjective Patient concerns: reports: dry mouth, nose, throat. denies: aerophagia, mask discomfort, air blowing in eyes, mask leak noise, condensation in mask/hose, nasal congestion, epistaxis Observed to snore while using device: No Current pressure setting perceived as: comfortable On therapy, patient: reports: sleeping better (but still tired during the day), awakening more refreshed. denies: drowsiness while driving Initial [place] Sleepiness Scale score: 3 (in 2014) Current [place] Sleepiness Scale score: 6 Allergies and Home Medications Known drug allergies: Yes Home medication list reviewed: No (increased Trulicity dose ) Review of Systems Review of systems same as previous: No (Surgery planned for back pain) Physical Exam Blood Pressure: 124/70 Cuff size: long Heart Rate: 61 (a few pauses noted in apical rate over 30 seconds ) O2 Saturation: 98 Height: 6 ft 6 in Weight: 364 lb Body Mass Index: 42.0 BMI Classification: Morbidly Obese Impression and Plan 1. Obstructive Sleep Apnea-Hypopnea Syndrome, moderate, with good treatment compliance and good apnea control. On CPAP therapy, the patient has better sleep quality but still has daytime fatigue. He is pleased with this style of mask as the hose does not get in way of sleep. I will change his auto-CPAP range to [id number] as his 95th% range is 9.2cmH20. Hopefully, he will find more benefit with this pressure range. He is advised to contact me if the pressure change is uncomfortable. Patient is morbidly obese and trying to lose weight. He hopes to lose more weight after pending back surgery completed and he is able to be more active. He currently uses a seated walker. Further discussed reflected his ultimate goal is to lose 100 pounds but plans on losing slowly. His CPAP pressure range will be reviewed at follow up to see if needs to be adjusted for weight loss goals. Patient has an ozone bladder cleaner and informed of FDA warning about use of ozone insecticide expert. He is advised to instead to use usual soap and water cleaning as directed. Oral dryness can be reduced by adjusting humidity setting higher or heated hose lower or by adjusting both settings. Verbal instructions given on how to change humidity and heated hose settings with rationale explaining why to change. Patient's apnea severity and rationale for treatment to reduce apnea, improve sleep quality and reduce cardiovascular and cerebrovascular events was reviewed. I also reviewed the benefit of consistent device use of CPAP for hypertension.Since patient has more severe apnea in supine position, patient advised to avoid supine sleep with pillow positioning if unable to use CPAP while ill or if without electricity to reduce apnea risk. 2. Periodic limb movement, severe, that did not fragment patients sleep. Periodic limb movement of sleep (PLMS) is characterized by episodes of repetitive limb movements that occur during sleep and usually involve the lower limbs. The etiology is unknown but can be associated with restless leg syndrome (RLS), neuropathy, spinal cord diseases, kidney disease, rheumatological disorders, narcolepsy, obstructive sleep apnea, and REM sleep behavior disorder. Other factors that can increase PLMS and/or RLS are heredity and iron deficiency as reflected by a low serum ferritin level below 50 to 75mcg / L. Several medications can precipitate or aggravate PLMS such as selective serotonin re- uptake inhibitor antidepressants, tricyclic antidepressants, lithium, and dopamine receptor antagonists with the exception of bupropion. Caffeine can also aggravate PLMS and should be avoided. Sleep hygiene methods can also improve sleep as well as lifestyle changes such as regular exercise. Patient states his legs were bothering him that night due to the bed being too short for his 6 foot 6 inch length causing him not to sleep well for night of titration study. Patient was advised that no treatment is needed at this time. If symptoms increase, then further evaluation is indicated. 3. Cardiac arrhythmia noted this sleep study. Frequent PVC's noted, sometimes in couplets, triplets. He also had a short run of non -sustained ventricular tachycardia. Patient stated he just had an EKG that was okay as part of his preop evaluation for pending back surgery. Thus he was advised of rationale for following up for further cardiac work up given this studies findings. A Holter monitor is recommended. Patient advised to contact his PCP for further evaluation and agreed with plan. * Change auto CPAP pressure to 9-12 cmH2O * Implement methods to reduce oral dryness. * Notify me if snoring with mask or feeling that the pressure is too much or too little * Attempt to lose weight * Follow up with PCP for further cardiac work up * Recommend Holter monitor * Call this office if any problems using CPAP * Return for follow up in 3 months , or sooner if concerns arise * * Addendum: * I called patient later at 17:15 to remind him of importance of taking his CPAP with him to his pending back surgery to use post operatively. He agreed with plan. Counseling Topics: Weight loss health impact Visit Type: In Office Time Spent with Patient (minutes): 43 Provider Statement: I spent 100% of the Face to Face Visit with the patient with greater than 50% spent counseling the patient and coordination of care.
== END 2020-07-16 11:19 | disposition home or self-care (01) ==
LOC: SC 11:18
PROVIDERS: ATTEND Nurse Practitioner Family
DX: G47.33 Obstructive sleep apnea (adult) (pediatric) (principal); G47.61 Periodic limb movement disorder; I49.9 Cardiac arrhythmia, unspecified; E66.01 Morbid (severe) obesity due to excess calories; Z68.41 Body mass index [BMI] 40.0-44.9, adult
CPT/HCPCS: 99215; G0463; 99212

== ENCOUNTER → 2020-08-07 | Outpatient (CLI) | payer MEDICARE, OTHER ==
[2020-08-07 18:45] LABS: CREATININE,URINE 62.2 mg/dL; MICROALBUM/CREATININE RATIO,UR 152.7 ug/mg (<30.0); MICROALBUMIN,URINE 9.5 mg/dL (0-300.0)
[2020-08-07 20:02] LABS: HEMOGLOBIN A1c% 7.5 % (4.27-6.07)
== END ==
LOC: LAB.WCP 14:53
PROVIDERS: ATTEND Family Medicine
DX: E11.49 Type 2 diabetes mellitus with other diabetic neurological complication (principal)
CPT/HCPCS: 36415; 80048; 82043; 82570; 83036

== ENCOUNTER 2020-10-17 10:45 | Outpatient (CLI) | payer MEDICARE, OTHER ==
--- NOTE | 2020-10-17 11:24 | SLEEP CARE CONSULTATION ---
Information from patient questionnaire entered by Rony Bingham. I have reviewed and concur with the information entered by Rony Bingham. This document represents the service I personally performed and the decisions made by , Sidra Pizarro ARNP. History of Present Illness Service Date and Time: 10/17/2020 1045 Previous diagnosis: Moderate, Obstructive Sleep Apnea-Hypopnea Syndrome AHI: 18.5 Reason for follow up: three month (Followup - pressure change) Equipment type: CPAP Equipment obtained from: [employer] (getting supplies as needed) Mask style: Full face Mask brand: Respironics Backup mask available: Yes (old mask) Last cushion change: 1 month Prior sleep studies: Yes Year and Where: 2013 - [facility] Type of Sleep Study: Polysomnography HPI additional information: GHADA NORTH was diagnosed to have moderate, AHI 18.5, obstructive sleep apnea- hypopnea syndrome and returned today for CPAP therapy 3 month pressure change follow-up. Sleep Study - Results Type of Sleep Study: Polysomnography Prior sleep studies: Yes Year and Where: 2013 - [facility] CPAP Compliance Data - Data Reviewed with Patient Average duration of nightly device use: 5 h 57 min Compliance rate %: 97 Current pressure setting (cmH2O): 9-12 (median 9.7, average 11.2, max 11.6) Average residual AHI: 3.7 Central apnea: 2.4 Obstructive apnea: 0.2 Subjective Patient concerns: reports: dry mouth, nose, throat (dry mouth, humidity at 5, 70 degrees heated hose). denies: aerophagia, mask discomfort, air blowing in eyes, mask leak noise, condensation in mask/hose, nasal congestion, epistaxis, other Observed to snore while using device: No Current pressure setting perceived as: too low On therapy, patient: reports: sleeping better, awakening more refreshed, being more awake and alert during the day, more rested overall. denies: drowsiness while driving Initial [place] Sleepiness Scale score: 3 (in 2013) Current [place] Sleepiness Scale score: 5 Allergies and Home Medications Drug allergies reviewed: Yes (HCTZ, adhesive tape) Home medication list reviewed: Yes (new heart medication Verapamil; off Toprol) Review of Systems Review of systems same as previous: No (PVCs, following up with cardiology; MRI ordered) Physical Exam Heart Rate: 74 O2 Saturation: 98 Height: 6 ft 6 in Weight: 265 lb Body Mass Index: 30.6 BMI Classification: Obese Impression and Plan 1. Obstructive Sleep Apnea-Hypopnea Syndrome, moderate, with good treatment compliance and good apnea control. On CPAP therapy, the patient has better sleep quality and is more rested overall. He feels the pressure is too low, especially when he is laying on his side. I will increase his pressure to 11-14 cm H2O to reduce air hunger. He has had some mouth dryness. His humidity is set at 5 with his heated hose about 70 degrees. I advised him to increase his humidity to reduce oral dryness. Patient's apnea severity and rationale for treatment to reduce apnea, improve sleep quality and reduce cardiovascular and cereb rovascular events was reviewed. I also reviewed the benefit of consistent device use of CPAP for his hypertension. * Change auto CPAP pressure to 11-14 cmH2O * Notify me if snoring with mask or feeling that the pressure is too much or too little * Attempt to lose weight * Call this office if any problems using CPAP * Return for follow up in 1-2 months, or sooner if concerns arise Counseling Topics: Spare mask Visit Type: In Office Time Spent with Patient (minutes): 21 Provider Statement: I spent 100% of the Face to Face Visit with the patient with greater than 50% spent counseling the patient and coordination of care.
== END 2020-10-17 10:46 | disposition home or self-care (01) ==
LOC: SC 10:45
PROVIDERS: ATTEND Nurse Practitioner Family
DX: G47.33 Obstructive sleep apnea (adult) (pediatric) (principal); E66.9 Obesity, unspecified; Z68.30 Body mass index [BMI] 30.0-30.9, adult
CPT/HCPCS: 99213; G0463; 99212

== ENCOUNTER 2020-10-23 14:05 | Outpatient (CLI) | payer MEDICARE, OTHER ==
[2020-10-23 18:59] LABS: BASOPHILS % (AUTO) 0.6 %; EOSINOPHILS # (AUTO) 0.2 10^3/uL (0.0-0.7); EOSINOPHILS % (AUTO) 2.3 %; HGB - HEMOGLOBIN 13.2 g/dL (14.0-18.0); LYMPHOCYTES # (AUTO) 1.6 10^3/uL (1.5-3.5); LYMPHOCYTES % (AUTO) 22.6 %; MEAN CORPUSCULAR HEMOGLOBIN 29.6 pg (27.0-31.0); MEAN CORPUSCULAR HGB CONC 32.3 g/dL (32.0-36.0); MEAN CORPUSCULAR VOLUME 91.7 fL (80.0-94.0); MEAN PLATELET VOLUME 12.9 fL (7.4-11.4); MONOCYTES # (AUTO) 0.4 10^3/uL (0.0-1.0); MONOCYTES % (AUTO) 6.1 %; NEUTROPHILS # (AUTO) 4.7 10^3/uL (1.5-6.6); PLT - PLATELET COUNT 176 10^3/uL (130-450); RED BLOOD COUNT 4.46 10^6/uL (4.70-6.10); RED CELL DISTRIBUTION WIDTH 13.1 % (12.0-15.0); WHITE BLOOD COUNT 6.9 x10^3/uL (4.8-10.8)
[2020-10-23 19:19] LABS: CALCIUM 10.1 mg/dL (8.5-10.3); CREATININE 1.1 mg/dL (0.6-1.2)
[2020-10-23 20:52] LABS: HEMOGLOBIN A1c% 8.6 % (4.27-6.07)
== END 2020-10-23 23:59 | disposition home or self-care (01) ==
LOC: LAB.WCP 14:05
PROVIDERS: ATTEND Nurse Practitioner
DX: E11.49 Type 2 diabetes mellitus with other diabetic neurological complication (principal); I10 Essential (primary) hypertension
CPT/HCPCS: 36415; 80048; 83036; 85025

== ENCOUNTER 2020-11-28 08:00 | Outpatient (CLI) | payer MEDICARE, OTHER ==
[2020-11-28 18:22] LABS: CALCIUM 9.7 mg/dL (8.5-10.3); CREATININE 1.5 mg/dL (0.6-1.2)
== END 2020-11-28 23:59 | disposition home or self-care (01) ==
LOC: LAB.WCP 08:00
PROVIDERS: ATTEND Internal Medicine
DX: I49.3 Ventricular premature depolarization (principal)
CPT/HCPCS: 36415; 80048; 80053; 80061; 82043; 82570; 83036; 83721; 84153; 85025

== ENCOUNTER 2020-12-18 10:57 | Outpatient (CLI) | payer MEDICARE, OTHER ==
--- NOTE | 2020-12-18 11:19 | SLEEP CARE CONSULTATION ---
Information from patient questionnaire entered by Larissa Maldonado. I have reviewed and concur with the information entered by Larissa Maldonado. This document represents the service I personally performed and the decisions made by , Sidra Pizarro ARNP. History of Present Illness Service Date and Time: 12/18/2020 1057 Previous diagnosis: Moderate, Obstructive Sleep Apnea-Hypopnea Syndrome AHI: 18.5 (in 2013) Reason for follow up: other (2 month with pressure change) Equipment type: CPAP Equipment obtained from: [employer] (getting supplies as needed) Mask style: Full face Mask brand: Respironics (Dreamwear) Backup mask available: Yes (old mask) Last cushion change: 2 months Prior sleep studies: Yes Year and Where: 2013 - [facility] Type of Sleep Study: Polysomnography HPI additional information: GHADA NORTH was diagnosed to have moderate, AHI 18.5, obstructive sleep apnea- hypopnea syndrome and returned today for CPAP therapy two month pressure change follow-up. CPAP Compliance Data - Data Reviewed with Patient Average duration of nightly device use: 6 hr 37 min Compliance rate %: 97 (60 days) Current pressure setting (cmH2O): 11-14 Humidity settin Average residual AHI: 2.2 Subjective Patient concerns: denies: aerophagia, mask discomfort, air blowing in eyes, mask leak noise, condensation in mask/hose, nasal congestion, dry mouth, nose, throat, epistaxis, other Observed to snore while using device: No Current pressure setting perceived as: comfortable On therapy, patient: reports: sleeping better, awakening more refreshed, being more awake and alert during the day, more rested overall. denies: drowsiness while driving Initial [place] Sleepiness Scale score: 3 (in 2013) Current [place] Sleepiness Scale score: 4 Allergies and Home Medications Home medication list reviewed: Yes (no changes) Review of Systems Review of systems same as previous: No (heart ablation scheduled January 16, 2021) Physical Exam Heart Rate: 90 O2 Saturation: 93 Height: 6 ft 6 in Weight: 360 lb Body Mass Index: 41.5 BMI Classification: Morbidly Obese Impression and Plan 1. Obstructive Sleep Apnea-Hypopnea Syndrome, moderate, with good treatment compliance and good apnea control. On CPAP therapy, the patient has better sleep quality and is more rested overall. He feels like the pressure is good, he no longer has any air hunger. He is using his [employer] on his phone to track his nights and is really liking the feedback he gets from it. He has no complaints with mask use and feels he is getting used to the mask now. I will have him follow up in 6 months. He voiced understanding. Patient's apnea severity and rationale for treatment to reduce apnea, improve sleep quality and reduce cardiovascular and cerebrovascular events was reviewed. I also reviewed the b enefit of consistent device use of CPAP for hypertension. * Continue autoCPAP pressure at 11-14 cmH2O * Notify me if snoring with mask or feeling that the pressure is too much or too little * Attempt to lose weight * Call this office if any problems using CPAP * Return for follow up in 6 months, or sooner if concerns arise Counseling Topics: Spare mask, Weight loss health impact Visit Type: In Office Time Spent with Patient (minutes): 15 Provider Statement: I spent 100% of the Face to Face Visit with the patient with greater than 50% spent counseling the patient and coordination of care.
== END 2020-12-18 10:58 | disposition home or self-care (01) ==
LOC: SC 10:57
PROVIDERS: ATTEND Nurse Practitioner Family
DX: G47.33 Obstructive sleep apnea (adult) (pediatric) (principal); E66.01 Morbid (severe) obesity due to excess calories; Z68.41 Body mass index [BMI] 40.0-44.9, adult
CPT/HCPCS: 99212; G0463

== ENCOUNTER 2020-12-25 08:00 | Outpatient (CLI) | payer MEDICARE, OTHER ==
[2020-12-25 18:06] LABS: BASOPHILS # (AUTO) 0.1 10^3/uL (0.0-0.1); BASOPHILS % (AUTO) 0.9 %; EOSINOPHILS # (AUTO) 0.3 10^3/uL (0.0-0.7); EOSINOPHILS % (AUTO) 4.2 %; HCT - HEMATOCRIT 39.2 % (42.0-52.0); HGB - HEMOGLOBIN 12.7 g/dL (14.0-18.0); LYMPHOCYTES # (AUTO) 2.1 10^3/uL (1.5-3.5); LYMPHOCYTES % (AUTO) 29.8 %; MEAN CORPUSCULAR HGB CONC 32.4 g/dL (32.0-36.0); MEAN CORPUSCULAR VOLUME 92.7 fL (80.0-94.0); MONOCYTES # (AUTO) 0.5 10^3/uL (0.0-1.0); MONOCYTES % (AUTO) 7.6 %; NEUTROPHILS % (AUTO) 56.8 %; PLT - PLATELET COUNT 177 10^3/uL (130-450); RED BLOOD COUNT 4.23 10^6/uL (4.70-6.10)
[2020-12-25 18:21] LABS: CREATININE,URINE 84.1 mg/dL; MICROALBUM/CREATININE RATIO,UR 15.5 ug/mg (<30.0); MICROALBUMIN,URINE 1.3 mg/dL (0-300.0)
[2020-12-25 18:27] LABS: ALBUMIN 4.1 g/dL (3.2-5.5); ALBUMIN/GLOBULIN RATIO 1.2 (1.0-2.2); ALKALINE PHOSPHATASE 59 IU/L (42-121); ALT ALANINE AMINOTRANSFERASE 21 IU/L (10-60); AST ASPARTATE AMINOTRANSFERASE 24 IU/L (10-42); BILIRUBIN,TOTAL 0.6 mg/dL (0.2-1.0); BUN - BLOOD UREA NITROGEN 28 mg/dL (6-20); CALCIUM 9.6 mg/dL (8.5-10.3); CARBON DIOXIDE - CO2 20 mmol/L (21-32); CHLORIDE 104 mmol/L (101-111); CHOL/HDL RATIO 2.5 (<5.0); CHOLESTEROL 111 mg/dL; CREATININE 1.3 mg/dL (0.6-1.2); GFR - MDRD 54 (>89); GLUCOSE 204 mg/dL (70-100); HDL CHOLESTEROL 44 mg/dL; LDL CHOLESTEROL,CALCULATED 54 mg/dL; LDL/HDL RATIO 1.2 (<3.6); SODIUM 137 mmol/L (135-145); TOTAL PROTEIN 7.6 g/dL (6.7-8.2); TRIGLYCERIDES 65 mg/dL; VLDL CHOLESTEROL 13 mg/dL
[2020-12-25 20:21] LABS: ESTIMATED AVERAGE GLUCOSE 203 mg/dL (70-100); HEMOGLOBIN A1c% 8.7 % (4.27-6.07)
== END 2020-12-25 23:59 | disposition home or self-care (01) ==
LOC: LAB.WCP 08:00
PROVIDERS: ATTEND Internal Medicine
DX: E11.49 Type 2 diabetes mellitus with other diabetic neurological complication (principal); N40.1 Benign prostatic hyperplasia with lower urinary tract symptoms; N13.8 Other obstructive and reflux uropathy
CPT/HCPCS: 36415; 80053; 80061; 82043; 82570; 83036; 83721; 84153; 85025

== ENCOUNTER 2021-03-05 08:00 | Outpatient (CLI) | payer MEDICARE, OTHER ==
[2021-03-05 18:18] LABS: CALCIUM 9.5 mg/dL (8.5-10.3); CREATININE 1.3 mg/dL (0.6-1.2); POTASSIUM 5.3 mmol/L (3.5-5.0)
[2021-03-05 20:03] LABS: ESTIMATED AVERAGE GLUCOSE 194 mg/dL (70-100); HEMOGLOBIN A1c% 8.4 % (4.27-6.07)
== END 2021-03-05 23:59 | disposition home or self-care (01) ==
LOC: LAB.WCP 08:00
PROVIDERS: ATTEND Internal Medicine
DX: E11.49 Type 2 diabetes mellitus with other diabetic neurological complication (principal)
CPT/HCPCS: 36415; 80048; 83036

== ENCOUNTER 2021-03-28 08:00 | Outpatient (CLI) | payer MEDICARE, OTHER ==
[2021-03-28 20:20] LABS: ESTIMATED AVERAGE GLUCOSE 200 mg/dL (70-100); HEMOGLOBIN A1c% 8.6 % (4.27-6.07)
== END 2021-03-28 23:59 | disposition home or self-care (01) ==
LOC: LAB.WCP 08:00
PROVIDERS: ATTEND Orthopaedic Surgery Orthopaedic Surgery of the Spine
DX: R73.9 Hyperglycemia, unspecified (principal)
CPT/HCPCS: 36415; 83036

== ENCOUNTER 2021-05-07 08:00 | Outpatient (CLI) | payer MEDICARE, OTHER ==
[2021-05-07 18:39] LABS: CALCIUM 9.3 mg/dL (8.5-10.3); CREATININE 1.4 mg/dL (0.6-1.2); POTASSIUM 5.4 mmol/L (3.5-5.0)
[2021-05-07 18:42] LABS: BASOPHILS # (AUTO) 0.1 10^3/uL (0.0-0.1); BASOPHILS % (AUTO) 0.6 %; EOSINOPHILS # (AUTO) 0.2 10^3/uL (0.0-0.7); EOSINOPHILS % (AUTO) 2.1 %; HCT - HEMATOCRIT 35.7 % (42.0-52.0); HGB - HEMOGLOBIN 11.5 g/dL (14.0-18.0); LYMPHOCYTES # (AUTO) 2.1 10^3/uL (1.5-3.5); LYMPHOCYTES % (AUTO) 26.2 %; MEAN CORPUSCULAR HEMOGLOBIN 31.1 pg (27.0-31.0); MEAN CORPUSCULAR HGB CONC 32.2 g/dL (32.0-36.0); MEAN CORPUSCULAR VOLUME 96.5 fL (80.0-94.0); MEAN PLATELET VOLUME 12.5 fL (7.4-11.4); MONOCYTES # (AUTO) 0.6 10^3/uL (0.0-1.0); MONOCYTES % (AUTO) 7.2 %; NEUTROPHILS # (AUTO) 5.2 10^3/uL (1.5-6.6); NEUTROPHILS % (AUTO) 63.2 %; PLT - PLATELET COUNT 203 10^3/uL (130-450); RED CELL DISTRIBUTION WIDTH 12.9 % (12.0-15.0); WHITE BLOOD COUNT 8.2 x10^3/uL (4.8-10.8)
== END 2021-05-07 23:59 | disposition home or self-care (01) ==
LOC: LAB.WCP 08:00
PROVIDERS: ATTEND Family Medicine
DX: E11.49 Type 2 diabetes mellitus with other diabetic neurological complication (principal); I10 Essential (primary) hypertension
CPT/HCPCS: 36415; 80048; 85025

== ENCOUNTER 2021-06-17 11:13 | Outpatient (CLI) | payer MEDICARE, OTHER ==
[2021-06-17 18:15] LABS: ALBUMIN 3.9 g/dL (3.2-5.5); ALBUMIN/GLOBULIN RATIO 1.1 (1.0-2.2); ALKALINE PHOSPHATASE 98 IU/L (42-121); ALT ALANINE AMINOTRANSFERASE 17 IU/L (10-60); AST ASPARTATE AMINOTRANSFERASE 21 IU/L (10-42); BILIRUBIN,TOTAL 0.9 mg/dL (0.2-1.0); BUN - BLOOD UREA NITROGEN 24 mg/dL (6-20); CALCIUM 9.3 mg/dL (8.5-10.3); CARBON DIOXIDE - CO2 21 mmol/L (21-32); CHLORIDE 103 mmol/L (101-111); CHOL/HDL RATIO 2.3 (<5.0); CHOLESTEROL 105 mg/dL; CREATININE 1.3 mg/dL (0.6-1.2); GFR - MDRD 54 (>89); GLUCOSE 225 mg/dL (70-100); HDL CHOLESTEROL 46 mg/dL; LDL CHOLESTEROL,CALCULATED 50 mg/dL; LDL/HDL RATIO 1.1 (<3.6); POTASSIUM 5.2 mmol/L (3.5-5.0); SODIUM 134 mmol/L (135-145); TOTAL PROTEIN 7.5 g/dL (6.7-8.2); TRIGLYCERIDES 45 mg/dL; VLDL CHOLESTEROL 9 mg/dL
[2021-06-17 19:59] LABS: ESTIMATED AVERAGE GLUCOSE 160 mg/dL (70-100); HEMOGLOBIN A1c% 7.2 % (4.27-6.07)
== END 2021-06-17 23:59 | disposition home or self-care (01) ==
LOC: LAB.WCP 11:13
PROVIDERS: ATTEND Internal Medicine
DX: E11.49 Type 2 diabetes mellitus with other diabetic neurological complication (principal)
CPT/HCPCS: 36415; 80053; 80061; 82043; 82570; 83036; 83721

== ENCOUNTER 2021-06-20 08:00 | Outpatient (CLI) | payer MEDICARE, OTHER ==
[2021-06-20 18:22] LABS: CREATININE,URINE 85.8 mg/dL; MICROALBUM/CREATININE RATIO,UR 30.3 ug/mg (<30.0); MICROALBUMIN,URINE 2.6 mg/dL (0-300.0)
== END 2021-06-20 23:59 | disposition home or self-care (01) ==
LOC: LAB.WCP 08:00
PROVIDERS: ATTEND Internal Medicine
DX: E11.49 Type 2 diabetes mellitus with other diabetic neurological complication (principal)
CPT/HCPCS: 82043; 82570

== ENCOUNTER 2021-06-27 10:23 | Outpatient (CLI) | payer MEDICARE, OTHER ==
--- NOTE | 2021-06-27 10:54 | SLEEP CARE CONSULTATION ---
Information from patient questionnaire entered by Larissa Maldonado. I have reviewed and concur with the information entered by Larissa Maldonado. This document represents the service I personally performed and the decisions made by , Sidra Pizarro ARNP. History of Present Illness Service Date and Time: 06/27/2021 1023 Previous diagnosis: Moderate, Obstructive Sleep Apnea-Hypopnea Syndrome AHI: 18.5 (in 2013) Reason for follow up: six month Equipment type: CPAP Equipment obtained from: [employer] (getting supplies as needed) Mask style: Full face Mask brand: Respironics (Dreamwear) Backup mask available: Yes (old mask) Last cushion change: 3 months ago Prior sleep studies: Yes Year and Where: [address] - [facility] Sleep Type of Sleep Study: Polysomnography HPI additional information: GHADA NORTH was diagnosed to have moderate, AHI 18.5, obstructive sleep apnea- hypopnea syndrome and returned today for CPAP therapy six month follow-up. CPAP Compliance Data - Data Reviewed with Patient Average duration of nightly device use: 6 hr 30 min Compliance rate %: 66 (180 days) Current pressure setting (cmH2O): 11-14 Humidity settin Average residual AHI: 1.8 Subjective Missed days of use due to: reports: illness, other (surgeries) Patient concerns: reports: other (shortness of breath due to surgery). denies: aerophagia, mask discomfort, air blowing in eyes, mask leak noise, condensation in mask/hose, nasal congestion, dry mouth, nose, throat, epistaxis Observed to snore while using device: No Current pressure setting perceived as: comfortable On therapy, patient: reports: sleeping better, awakening more refreshed, being more awake and alert during the day, more rested overall. denies: drowsiness while driving Initial [place] Sleepiness Scale score: 3 (in 2013) Current [place] Sleepiness Scale score: 6 Allergies and Home Medications Home medication list reviewed: Yes (Mexelitine for heart PVCs) Review of Systems Review of systems same as previous: No (Heart ablation December 2020 and back surgery in April 2021) Physical Exam Heart Rate: 82 O2 Saturation: 95 Height: 6 ft 6 in Weight: 350 lb Weight change since last visit: 10 pound loss Body Mass Index: 40.4 BMI Classification: Morbidly Obese Impression and Plan 1. Obstructive Sleep Apnea-Hypopnea Syndrome, moderate, with fair treatment compliance and good apnea control. On CPAP therapy, the patient has better sleep quality and is more rested overall. 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 He also had a back surgery in April which limited his ability to use his CPAP due to room having a very small side table. He is now using it again at home but occasionally has some shortness of breath due to the surgery and his heart ablation. He continues to try every night to get used to wearing it again. Patient has lost weight. Currently patients BMI is 40.4. Obesity increases the risk of apnea, CPAP pressure requirements and overall health risks especially cardiovascular and diabetes. Thus patient is advised to continue to lose weight. The patient would like to reduce to 320 pounds by end of the year. The patient's CPAP pressure range should accommodate some weight loss. Symptoms to report for additional pressure adjustment discussed. Patient's apnea severity and rationale for treatment to reduce apnea, improve sleep quality and reduce cardiovascular and cerebrovascular events was reviewed. I also reviewed the benefit of consistent device use of CPAP for hypertension. * Continue auto CPAP pressure at 11-14 cmH2O * Notify me if snoring with mask or feeling that the pressure is too much or too little * Attempt to lose weight * Call this office if any problems using CPAP * Return for follow up in 1 year, or sooner if concerns arise Counseling Topics: Spare mask, Weight loss health impact Visit Type: In Office Time Spent with Patient (minutes): 22 Provider Statement: I spent 100% of the Face to Face Visit with the patient with greater than 50% spent counseling the patient and coordination of care.
== END 2021-06-27 10:24 | disposition home or self-care (01) ==
LOC: SC 10:23
PROVIDERS: ATTEND Nurse Practitioner Family
DX: G47.33 Obstructive sleep apnea (adult) (pediatric) (principal); E66.01 Morbid (severe) obesity due to excess calories; Z68.41 Body mass index [BMI] 40.0-44.9, adult
CPT/HCPCS: 99213; G0463; 99212

== ENCOUNTER 2021-09-20 11:46 | Outpatient (CLI) | payer MEDICARE, OTHER ==
[2021-09-20 18:31] LABS: BUN - BLOOD UREA NITROGEN 25 mg/dL (6-20); CALCIUM 9.3 mg/dL (8.5-10.3); CARBON DIOXIDE - CO2 24 mmol/L (21-32); CHLORIDE 101 mmol/L (101-111); CHOL/HDL RATIO 2.1 (<5.0); CHOLESTEROL 96 mg/dL; CREATININE 1.2 mg/dL (0.6-1.2); GFR - MDRD 59 (>89); GLUCOSE 116 mg/dL (70-100); HDL CHOLESTEROL 45 mg/dL; LDL CHOLESTEROL,CALCULATED 41 mg/dL; LDL/HDL RATIO 0.9 (<3.6); POTASSIUM 4.9 mmol/L (3.5-5.0); SODIUM 134 mmol/L (135-145); TRIGLYCERIDES 48 mg/dL; VLDL CHOLESTEROL 10 mg/dL
[2021-09-20 21:38] LABS: ESTIMATED AVERAGE GLUCOSE 183 mg/dL (70-100)
== END 2021-09-20 23:59 | disposition home or self-care (01) ==
LOC: LAB.WCP 11:46
PROVIDERS: ATTEND Internal Medicine
DX: E11.49 Type 2 diabetes mellitus with other diabetic neurological complication (principal); E78.5 Hyperlipidemia, unspecified
CPT/HCPCS: 36415; 80048; 80061; 83036; 83721

== ENCOUNTER 2021-12-24 11:31 | Outpatient (CLI) | payer MEDICARE, OTHER ==
[2021-12-24 18:34] LABS: CALCIUM 9.7 mg/dL (8.5-10.3); CREATININE 1.1 mg/dL (0.6-1.2); POTASSIUM 4.9 mmol/L (3.5-5.0)
[2021-12-24 18:48] LABS: THYROID STIMULATING HORMONE 3.95 uIU/mL (0.34-5.60)
[2021-12-24 20:00] LABS: ESTIMATED AVERAGE GLUCOSE 183 mg/dL (70-100)
== END 2021-12-24 11:32 | disposition home or self-care (01) ==
LOC: LAB.N 11:31
PROVIDERS: ATTEND Internal Medicine
DX: E11.49 Type 2 diabetes mellitus with other diabetic neurological complication (principal); E78.5 Hyperlipidemia, unspecified
CPT/HCPCS: 36415; 80048; 83036; 84443

== ENCOUNTER 2022-04-01 11:26 | Outpatient (CLI) | payer MEDICARE, OTHER ==
[2022-04-01 17:49] LABS: CALCIUM 9.5 mg/dL (8.5-10.3); CREATININE 1.1 mg/dL (0.6-1.2)
[2022-04-01 21:08] LABS: ESTIMATED AVERAGE GLUCOSE 194 mg/dL (70-100); HEMOGLOBIN A1c% 8.4 % (4.27-6.07)
== END 2022-04-01 11:27 | disposition home or self-care (01) ==
LOC: LAB.N 11:26
PROVIDERS: ATTEND Internal Medicine
DX: E11.49 Type 2 diabetes mellitus with other diabetic neurological complication (principal); N40.1 Benign prostatic hyperplasia with lower urinary tract symptoms
CPT/HCPCS: 36415; 80048; 83036; 84153

== ENCOUNTER 2022-07-01 14:53 | Outpatient (CLI) | payer MEDICARE, OTHER ==
[2022-07-01 18:26] LABS: CALCIUM 10.1 mg/dL (8.5-10.3); CREATININE 1.1 mg/dL (0.6-1.2); POTASSIUM 4.6 mmol/L (3.5-5.0)
[2022-07-01 22:33] LABS: ESTIMATED AVERAGE GLUCOSE 278 mg/dL (70-100); HEMOGLOBIN A1c% 11.3 % (4.27-6.07)
== END 2022-07-01 14:54 | disposition home or self-care (01) ==
LOC: LAB.N 14:53
PROVIDERS: ATTEND Internal Medicine
DX: E11.49 Type 2 diabetes mellitus with other diabetic neurological complication (principal)
CPT/HCPCS: 36415; 80048; 83036

== ENCOUNTER 2022-10-03 11:12 | Outpatient (CLI) | payer MEDICARE, OTHER ==
[2022-10-03 18:12] LABS: BASOPHILS % (AUTO) 0.6 %; EOSINOPHILS # (AUTO) 0.2 10^3/uL (0.0-0.7); EOSINOPHILS % (AUTO) 2.4 %; HCT - HEMATOCRIT 39.4 % (42.0-52.0); HGB - HEMOGLOBIN 12.4 g/dL (14.0-18.0); LYMPHOCYTES # (AUTO) 2.2 10^3/uL (1.5-3.5); LYMPHOCYTES % (AUTO) 30.2 %; MEAN CORPUSCULAR HEMOGLOBIN 29.5 pg (27.0-31.0); MEAN CORPUSCULAR HGB CONC 31.5 g/dL (32.0-36.0); MEAN CORPUSCULAR VOLUME 93.6 fL (80.0-94.0); MEAN PLATELET VOLUME 12.9 fL (7.4-11.4); MONOCYTES # (AUTO) 0.5 10^3/uL (0.0-1.0); MONOCYTES % (AUTO) 6.4 %; NEUTROPHILS # (AUTO) 4.3 10^3/uL (1.5-6.6); PLT - PLATELET COUNT 173 10^3/uL (130-450); RED BLOOD COUNT 4.21 10^6/uL (4.70-6.10); RED CELL DISTRIBUTION WIDTH 13.2 % (12.0-15.0); WHITE BLOOD COUNT 7.2 x10^3/uL (4.8-10.8)
[2022-10-03 18:16] LABS: ALBUMIN 3.8 g/dL (3.2-5.5); ALKALINE PHOSPHATASE 62 IU/L (42-121); ALT ALANINE AMINOTRANSFERASE 16 IU/L (10-60); AST ASPARTATE AMINOTRANSFERASE 19 IU/L (10-42); BILIRUBIN,TOTAL 0.7 mg/dL (0.2-1.0); BUN - BLOOD UREA NITROGEN 24 mg/dL (6-20); CALCIUM 9.7 mg/dL (8.5-10.3); CARBON DIOXIDE - CO2 23 mmol/L (21-32); CHLORIDE 105 mmol/L (101-111); CHOL/HDL RATIO 2.1 (<5.0); CHOLESTEROL 112 mg/dL; CREATININE 1.2 mg/dL (0.6-1.2); CREATININE,URINE 38.7 mg/dL; GFR - MDRD 59 (>89); GLUCOSE 110 mg/dL (70-100); HDL CHOLESTEROL 54 mg/dL; LDL CHOLESTEROL,CALCULATED 47 mg/dL; LDL/HDL RATIO 0.9 (<3.6); MICROALBUM/CREATININE RATIO,UR 5.2 ug/mg (<30.0); MICROALBUMIN,URINE 0.2 mg/dL (0-300.0); POTASSIUM 5.2 mmol/L (3.5-5.0); SODIUM 137 mmol/L (135-145); TOTAL PROTEIN 7.5 g/dL (6.7-8.2); TRIGLYCERIDES 54 mg/dL; VLDL CHOLESTEROL 11 mg/dL
[2022-10-03 22:12] LABS: ESTIMATED AVERAGE GLUCOSE 177 mg/dL (70-100); HEMOGLOBIN A1c% 7.8 % (4.27-6.07)
== END 2022-10-03 11:13 | disposition home or self-care (01) ==
LOC: LAB.N 11:12
PROVIDERS: ATTEND Internal Medicine
DX: E11.49 Type 2 diabetes mellitus with other diabetic neurological complication (principal); E78.5 Hyperlipidemia, unspecified; I10 Essential (primary) hypertension; I47.20 Ventricular tachycardia, unspecified
CPT/HCPCS: 36415; 80053; 80061; 82043; 82570; 83036; 83721; 85025

== ENCOUNTER 2023-01-14 11:59 | Outpatient (CLI) | payer MEDICARE, OTHER ==
[2023-01-14 18:10] LABS: BASOPHILS # (AUTO) 0.1 10^3/uL (0.0-0.1); BASOPHILS % (AUTO) 0.8 %; EOSINOPHILS # (AUTO) 0.2 10^3/uL (0.0-0.7); EOSINOPHILS % (AUTO) 2.3 %; HCT - HEMATOCRIT 40.4 % (42.0-52.0); HGB - HEMOGLOBIN 13.1 g/dL (14.0-18.0); LYMPHOCYTES # (AUTO) 1.9 10^3/uL (1.5-3.5); LYMPHOCYTES % (AUTO) 29.3 %; MEAN CORPUSCULAR HEMOGLOBIN 29.8 pg (27.0-31.0); MEAN CORPUSCULAR HGB CONC 32.4 g/dL (32.0-36.0); MEAN CORPUSCULAR VOLUME 91.8 fL (80.0-94.0); MONOCYTES # (AUTO) 0.4 10^3/uL (0.0-1.0); MONOCYTES % (AUTO) 5.8 %; NEUTROPHILS # (AUTO) 4.1 10^3/uL (1.5-6.6); NEUTROPHILS % (AUTO) 61.3 %; PLT - PLATELET COUNT 185 10^3/uL (130-450); RED CELL DISTRIBUTION WIDTH 13.5 % (12.0-15.0); THYROID STIMULATING HORMONE 4.69 uIU/mL (0.34-5.60); WHITE BLOOD COUNT 6.6 x10^3/uL (4.8-10.8)
[2023-01-14 18:25] LABS: ALBUMIN/GLOBULIN RATIO 1.1 (1.0-2.2); ALKALINE PHOSPHATASE 61 IU/L (42-121); ALT ALANINE AMINOTRANSFERASE 20 IU/L (10-60); AST ASPARTATE AMINOTRANSFERASE 21 IU/L (10-42); BILIRUBIN,TOTAL 0.7 mg/dL (0.2-1.0); BUN - BLOOD UREA NITROGEN 23 mg/dL (6-20); CALCIUM 9.6 mg/dL (8.5-10.3); CARBON DIOXIDE - CO2 22 mmol/L (21-32); CHLORIDE 108 mmol/L (101-111); CHOL/HDL RATIO 2.1 (<5.0); CHOLESTEROL 105 mg/dL; CREATININE 1.3 mg/dL (0.6-1.2); GFR - MDRD 54 (>89); GLUCOSE 140 mg/dL (70-100); HDL CHOLESTEROL 50 mg/dL; LDL CHOLESTEROL,CALCULATED 41 mg/dL; LDL/HDL RATIO 0.8 (<3.6); POTASSIUM 4.6 mmol/L (3.5-5.0); SODIUM 136 mmol/L (135-145); TOTAL PROTEIN 7.5 g/dL (6.7-8.2); TRIGLYCERIDES 68 mg/dL; VLDL CHOLESTEROL 14 mg/dL
[2023-01-14 18:33] LABS: MICROALBUM/CREATININE RATIO,UR 11.5 ug/mg (<30.0); MICROALBUMIN,URINE 0.7 mg/dL (0-300.0)
[2023-01-14 20:41] LABS: ESTIMATED AVERAGE GLUCOSE 186 mg/dL (70-100); HEMOGLOBIN A1c% 8.1 % (4.27-6.07)
== END 2023-01-14 12:00 | disposition home or self-care (01) ==
LOC: LAB.N 11:59
PROVIDERS: ATTEND Internal Medicine
DX: E11.49 Type 2 diabetes mellitus with other diabetic neurological complication (principal); E78.5 Hyperlipidemia, unspecified; I10 Essential (primary) hypertension
CPT/HCPCS: 36415; 80053; 80061; 82043; 82570; 83036; 83721; 84443; 85025

== ENCOUNTER 2023-05-27 11:20 | Outpatient (CLI) | payer MEDICARE, OTHER ==
[2023-05-27 18:01] LABS: BASOPHILS % (AUTO) 0.3 %; EOSINOPHILS # (AUTO) 0.2 10^3/uL (0.0-0.7); EOSINOPHILS % (AUTO) 2.2 %; HCT - HEMATOCRIT 42.9 % (42.0-52.0); LYMPHOCYTES % (AUTO) 31.3 %; MEAN CORPUSCULAR HGB CONC 32.6 g/dL (32.0-36.0); MEAN CORPUSCULAR VOLUME 92.1 fL (80.0-94.0); MONOCYTES # (AUTO) 0.6 10^3/uL (0.0-1.0); MONOCYTES % (AUTO) 6.2 %; NEUTROPHILS # (AUTO) 5.6 10^3/uL (1.5-6.6); NEUTROPHILS % (AUTO) 59.4 %; PLT - PLATELET COUNT 224 10^3/uL (130-450); RED BLOOD COUNT 4.66 10^6/uL (4.70-6.10); RED CELL DISTRIBUTION WIDTH 13.5 % (12.0-15.0); WHITE BLOOD COUNT 9.4 x10^3/uL (4.8-10.8)
[2023-05-27 18:10] LABS: ALBUMIN/GLOBULIN RATIO 1.3 (1.0-2.2); BILIRUBIN,TOTAL 0.6 mg/dL (0.2-1.0); CALCIUM 9.8 mg/dL (8.5-10.3); CREATININE 1.5 mg/dL (0.6-1.3); POTASSIUM 5.2 mmol/L (3.5-4.5); TOTAL PROTEIN 7.2 g/dL (6.4-8.9)
[2023-05-27 18:17] LABS: THYROID STIMULATING HORMONE 4.15 uIU/mL (0.34-5.60)
[2023-05-27 20:05] LABS: ESTIMATED AVERAGE GLUCOSE 177 mg/dL (70-100); HEMOGLOBIN A1c% 7.8 % (4.27-6.07)
== END 2023-05-27 11:21 | disposition home or self-care (01) ==
LOC: LAB.N 11:20
PROVIDERS: ATTEND Internal Medicine
DX: I10 Essential (primary) hypertension (principal); E11.8 Type 2 diabetes mellitus with unspecified complications; E11.49 Type 2 diabetes mellitus with other diabetic neurological complication; I48.0 Paroxysmal atrial fibrillation
CPT/HCPCS: 36415; 80053; 83036; 84443; 85025

== ENCOUNTER 2023-07-29 12:58 | Outpatient (CLI) | payer MEDICARE, OTHER ==
[2023-07-29 18:17] LABS: CALCIUM 9.7 mg/dL (8.5-10.3); CREATININE 1.2 mg/dL (0.6-1.3); POTASSIUM 5.1 mmol/L (3.5-4.5)
[2023-07-29 18:51] LABS: CREATININE,URINE 34.4 mg/dL; MICROALBUM/CREATININE RATIO,UR 197.7 ug/mg (<30.0); MICROALBUMIN,URINE 6.8 mg/dL
[2023-07-29 22:20] LABS: ESTIMATED AVERAGE GLUCOSE 203 mg/dL (70-100); HEMOGLOBIN A1c% 8.7 % (4.27-6.07)
== END 2023-07-29 12:59 | disposition home or self-care (01) ==
LOC: LAB.N 12:58
PROVIDERS: ATTEND Nurse Practitioner
DX: E11.22 Type 2 diabetes mellitus with diabetic chronic kidney disease (principal); N18.31 Chronic kidney disease, stage 3a; E11.49 Type 2 diabetes mellitus with other diabetic neurological complication; E11.8 Type 2 diabetes mellitus with unspecified complications
CPT/HCPCS: 36415; 80048; 82043; 82570; 83036

== ENCOUNTER 2023-11-30 09:55 | Outpatient (CLI) | payer MEDICARE, OTHER ==
[2023-11-30 12:25] LABS: BASOPHILS % (AUTO) 0.5 %; EOSINOPHILS # (AUTO) 0.2 10^3/uL (0.0-0.7); HCT - HEMATOCRIT 39.5 % (42.0-52.0); LYMPHOCYTES % (AUTO) 37.3 %; MEAN CORPUSCULAR HGB CONC 32.9 g/dL (32.0-36.0); MEAN PLATELET VOLUME 12.5 fL (7.4-11.4); MONOCYTES # (AUTO) 0.5 10^3/uL (0.0-1.0); MONOCYTES % (AUTO) 5.5 %; NEUTROPHILS # (AUTO) 4.5 10^3/uL (1.5-6.6); NEUTROPHILS % (AUTO) 54.5 %; PLT - PLATELET COUNT 165 10^3/uL (130-450); RED BLOOD COUNT 4.34 10^6/uL (4.70-6.10); RED CELL DISTRIBUTION WIDTH 12.9 % (12.0-15.0); WHITE BLOOD COUNT 8.2 x10^3/uL (4.8-10.8)
[2023-11-30 12:54] LABS: ALBUMIN/GLOBULIN RATIO 1.4 (1.0-2.2); ALKALINE PHOSPHATASE 63 IU/L (42-121); ALT ALANINE AMINOTRANSFERASE 12 IU/L (10-60); AST ASPARTATE AMINOTRANSFERASE 14 IU/L (10-42); BILIRUBIN,TOTAL 0.6 mg/dL (0.2-1.0); BUN - BLOOD UREA NITROGEN 21 mg/dL (6-20); CALCIUM 9.9 mg/dL (8.5-10.3); CARBON DIOXIDE - CO2 22 mmol/L (21-32); CHLORIDE 104 mmol/L (101-111); CHOLESTEROL 99 mg/dL; CREATININE 1.4 mg/dL (0.6-1.3); GFR - MDRD 49 (>89); GLUCOSE 153 mg/dL (74-104); HDL CHOLESTEROL 50 mg/dL; LDL CHOLESTEROL,CALCULATED 37 mg/dL; LDL/HDL RATIO 0.7 (<3.6); POTASSIUM 4.9 mmol/L (3.5-4.5); SODIUM 134 mmol/L (135-145); TOTAL PROTEIN 6.8 g/dL (6.4-8.9); TRIGLYCERIDES 59 mg/dL (48-352); VLDL CHOLESTEROL 12 mg/dL
[2023-11-30 12:55] LABS: MICROALBUM/CREATININE RATIO,UR 46.9 ug/mg (<30.0); MICROALBUMIN,URINE 1.5 mg/dL
[2023-11-30 13:18] LABS: THYROID STIMULATING HORMONE 6.83 uIU/mL (0.34-5.60)
[2023-11-30 14:17] LABS: ESTIMATED AVERAGE GLUCOSE 186 mg/dL (70-100); HEMOGLOBIN A1c% 8.1 % (4.27-6.07)
== END 2023-11-30 09:56 | disposition home or self-care (01) ==
LOC: LAB.N 09:55
PROVIDERS: ATTEND Internal Medicine
DX: E11.42 Type 2 diabetes mellitus with diabetic polyneuropathy (principal); E78.5 Hyperlipidemia, unspecified; N40.1 Benign prostatic hyperplasia with lower urinary tract symptoms; I48.0 Paroxysmal atrial fibrillation; I10 Essential (primary) hypertension
CPT/HCPCS: 36415; 80053; 80061; 82043; 82570; 83036; 83721; 84153; 84439; 84443; 85025

== ENCOUNTER 2024-02-04 14:21 | Outpatient (CLI) | payer MEDICARE, OTHER ==
[2024-02-04 17:51] LABS: BILIRUBIN,URINE NEGATIVE (NEGATIVE); GLUCOSE, URINE (UA) NEGATIVE (NEGATIVE); KETONES,URINE (UA) NEGATIVE (NEGATIVE); LEUKOCYTE ESTERASE, URINE MODERATE (NEGATIVE); NITRITE,URINE NEGATIVE (NEGATIVE); OCCULT BLOOD,URINE TRACE-INTA (NEGATIVE); PROTEIN,URINE NEGATIVE (NEGATIVE); UROBILINOGEN,URINE 0.2 (NORMAL) E.U./dL (NORMAL)
[2024-02-04 17:58] LABS: CLARITY,URINE HAZY (CLEAR)
[2024-02-04 18:08] LABS: BACTERIA,URINE None Seen /HPF (None Seen); SQUAMOUS EPITHELIAL CELL,UR NONE SEEN (<= Few)
== END 2024-02-04 14:22 | disposition home or self-care (01) ==
LOC: LAB.N 14:21
PROVIDERS: ATTEND Urology
DX: N39.0 Urinary tract infection, site not specified (principal); N32.0 Bladder-neck obstruction
CPT/HCPCS: 81001; 81003; 87086